=== PATIENT | female | born 1950 | race Caucasian/White ===

== ENCOUNTER 2018-07-29 22:06 | Inpatient (IN) ==
[2018-07-29] MEDS ORDERED: GuaiFENesin Liq 200 MG/10 ML UDC PO PRN (23:25)
[2018-07-29] MEDS ORDERED: Benzonatate 100 MG CAPSULE PO PRN (23:25)
[2018-07-29] MEDS ORDERED: Lactulose Oral Soln 20 GM/30 ML UDC PO PRN (23:25)
[2018-07-29] MEDS ORDERED: Ondansetron ODT 4 MG TAB.RAPDIS PO PRN (23:25)
[2018-07-30] MEDS: Furosemide 40 MG TABLET PO SCH (08:12)
[2018-07-30] MEDS: Diltiazem CD (24hr) 120 MG CAPSULE PO SCH (08:12)
[2018-07-30] MEDS: ALPRAZolam 0.25 MG TABLET PO PRN ×2 (08:12→20:54)
[2018-07-30] MEDS: predniSONE 10 MG TABLET PO SCH (08:12)
[2018-07-30] MEDS: Apixaban 5 MG TABLET PO SCH ×2 (08:12→20:54)
[2018-07-30] MEDS: Budesonide/Formoterol 160/4.5 1 PUFF INH IH SCH ×2 (09:13→22:27)
--- NOTE | 2018-07-30 15:40 | Internal Med History&Physical ---
Date of Encounter: 07/30/18 Time of Encounter: 15:10 Assessment and Plan (1) Colovesical fistula Current visit: No Status: Acute Status post repair with development of colostomy. Follow up with surgeons as directed. (2) Weakness Current visit: Yes Status: Acute PT and OT evaluations have been ordered (3) HTN (hypertension) Current visit: No Status: Chronic Continue Cardizem, Lasix, and Cozaar Qualifiers: Hypertension type: essential hypertension Qualified Code(s): I10 - Essential (primary) hypertension (4) COPD (chronic obstructive pulmonary disease) Current visit: No Status: Acute Continue Symbicort and prn Proventil nebs Qualifiers: COPD type: emphysema Emphysema type: unspecified Qualified Code(s): J43.9 - Emphysema, unspecified (5) Atrial fibrillation Current visit: No Status: Chronic Continue Cardizem and Eliquis Qualifiers: Atrial fibrillation type: persistent Qualified Code(s): I48.1 - Persistent atrial fibrillation (6) Anxiety Current visit: No Status: Chronic Continue Xanax (7) Anemia Current visit: Yes Status: Acute Postoperative. Check anemia testing in a.m. Qualifiers: Anemia type: unspecified type Qualified Code(s): D64.9 - Anemia, unspecified Internal Medicine - H&P: HPI Chief complaint: Colovesical fistula repair, acute and chronic respiratory failure Admitted From: Hospital to Hospital Transfer Plans for Post Hospital Care: Home History of present illness: Ms. Morrison is a 68 year old female who was hospitalized at [facility] July 04- July 29 after presenting at [facility] with sepsis, acute diverticulitis with possible small bowel obstruction, and colovesicular fistula. She had surgical repair of the fistula and creation of a diverting colostomy. She underwent IR CT-guided drainage for fluid collection/abscess postoperatively. She had mucus plugging and underwent bronchoscopy with BAL. She developed hydronephrosis and required left ureteral stent with residual indwelling Farias. She had new onset AF with RVR and was placed on Eliquis. She was discharged to [facility] swing bed for ongoing care needs. Past Med Surg Social Fam HX - Past Medical History Medical history: CHF, COPD, hypertension Additional medical history: diverticulitis Psychiatric history: anxiety, depression - Past Surgical History Surgical History: DAYANARA/BSO Additional surgical history: D & C, bilt knee surgery, bladder surgery - Social History Smoking Status: Former smoker Smokeless Tobacco Status: No Alcohol use: none Drug use: none - Family History Mother Hx Family Cardiac Disorders: Yes Internal Medicine - H&P: Meds Albuterol Neb [Proventil Neb] 2.5 mg IH Q4H PRN 08/07/16 [History] Albuterol Sulfate [Albuterol Inhaler] 2 puff IH Q4H PRN 08/07/16 [History] Budesonide/Formoterol 160/4.5 [Symbicort 160/4.5] 2 puff IH BIDR 08/07/16 [History] Sertraline [Zoloft] 100 mg PO DAILY 08/07/16 [History] Ondansetron HCl 4 mg PO QID PRN 06/25/18 [History] ALPRAZolam [Xanax 0.5 MG Tablet] 0.5 mg PO TID PRN 07/04/18 [History] Lactulose 30 ml PO BID PRN 07/05/18 [History] ALPRAZolam [Xanax 0.25 MG Tablet] 0.25 mg PO TID PRN 5 Days #20 tablet 07/29/18 [Rx] Apixaban [Eliquis] 5 mg PO BID tablet 07/29/18 [Rx] Benzonatate [Tessalon] 100 mg PO TID PRN capsule 07/29/18 [Rx] Diltiazem CD (24hr) [Cardizem CD] 120 mg PO DAILY cap.er.24h 07/29/18 [Rx] Furosemide [Lasix] 40 mg PO DAILY tablet 07/29/18 [Rx] GuaiFENesin Liq [Robitussin Liq] 200 mg PO Q6HR PRN udc 07/29/18 [Rx] Losartan [Cozaar] 25 mg PO DAILY #30 tablet 07/29/18 [Rx] Oxybutynin [Ditropan] 5 mg PO TID tablet 07/29/18 [Rx] predniSONE [PredniSONE] 10 mg PO DAILY #3 tablet 07/29/18 [Rx] Allergy/AdvReac Type Severity Reaction Status Date / Time morphine Allergy Vomiting Verified 07/04/18 09:30 Sulfa (Sulfonamide Allergy Hives Verified 07/04/18 09:30 Antibiotics) All Systems PM: A 10-system review of systems was performed and is negative for pertinent findings except as documented above in the HPI. Review of systems: Gen.: She states her weight has been stable for several months Cardiovascular: She has history of hypertension. She has new onset atrial fibrillation as per above. Echocardiogram 07/05/2018 showed LVEF of 60%. There was indeterminate diastolic function assessment due to atrial fibrillation. Interventricular septum and posterior wall thickness measurements were 1.30 and 0.96 cm respectively. There was slight RVSP estimate elevation at 38 mmHg. No significant valvular dysfunction was seen. She denies PR DVT or pulmonary embolus. Respiratory: She smoked from age [age] up to one half packs per day. She does not recall PFTs but has been diagnosed with COPD. She uses oxygen at bedtime and as needed during the daytime. She has chronic respiratory failure and uses BiPAP at bedtime. GI: She denies disorders of her liver gallbladder or exocrine pancreas. She had recent colovesicular fistula repair with development of colostomy as per history of present illness. : She had stent placed in left ureter and fistula bladder repair as per history of present illness. She denies other kidney or bladder disorders. Neurologic: She denies large distribution strokes or seizures. Endocrine: She denies diabetes thyroid disease or hyperlipidemia Hematology/oncology: She was unaware she had anemia on most labs since 07/08/2018. She had leukocytosis intermittently for 3 years. WBC was normal yesterday at 7.9. She denies known internal malignancies or other blood disorders. Psychiatric: She has anxiety but denies depression or other mental health issues [place] skeletal: She has occasional aches and pains but denies DJD, gout, or other bone joint or muscle disorders. - Constitutional Vitals: Temp Pulse Resp BP Pulse Ox 98.4 F 98 18 117/59 92 07/30/18 07:07 07/30/18 10:34 07/30/18 10:34 07/30/18 10:34 07/30/18 10:34 Exam: Gen.: She is a well-developed well-nourished female sitting in a chair at bedside who appears in no acute distress. She denies pain or dyspnea. HEENT: Head is atraumatic and normocephalic. Eyes: EOMI. There is no scleral icterus. Mouth: Mucosa is moist. Neck: Supple and nontender. There is no thyromegaly or adenopathy noted. Heart: Regular without murmurs gallops or ectopics Lungs: No wheezes or crackles are heard. Abdomen: She has an ostomy bag in the left abdominal area. The abdomen is nontender to palpation. Exam is limited because she is in the seated position. Extremities: She has bilateral dependent rubor. There is 1+ edema of the dorsum of the feet lower legs bilaterally. Dorsalis pedis and posterior tibial pulses are not palpable. Neurologic: Mental status: She is talkative and a good historian. Cranial nerves: Smile is symmetric. Forehead wrinkles bilaterally. Tongue protrudes midline. EOMI. Motor: There is no pronator drift. Cerebellar: Finger to nose is intact bilaterally. Skin: Warm and dry
[2018-07-31 06:30] LABS: Basophils % 0.3 %; Eosinophils # 0.1 K/mcL (0.0-0.6); Hematocrit 29.4 % (35.3-44.9); Hemoglobin 9.1 g/dL (11.5-15.4); Immature Granulocytes % 0.4 % (0-4); Lymphocytes # 1.8 K/mcL (0.6-4.6); Mean Platelet Volume 9.3 fL (9.4-12.4); Monocytes # 0.5 K/mcL (0.0-1.3); Monocytes % 6.5 %; Neutrophils # 4.6 K/mcL (1.6-8.9); Platelet Count 227 K/mcL (140-400); Red Blood Count 3.03 M/mcL (3.82-4.97); Red Cell Distribution Width 15.4 % (11.5-14.5); Segmented Neutrophils % 65.8 %
[2018-07-31] MEDS: Diltiazem CD (24hr) 120 MG CAPSULE PO SCH (08:37)
[2018-07-31] MEDS: predniSONE 10 MG TABLET PO SCH (08:37)
[2018-07-31] MEDS: Apixaban 5 MG TABLET PO SCH ×2 (08:37→20:01)
[2018-07-31] MEDS: Furosemide 40 MG TABLET PO SCH (08:37)
[2018-07-31] MEDS: ALPRAZolam 0.25 MG TABLET PO PRN ×2 (08:42→22:05)
[2018-07-31 10:31] LABS: % Iron Saturation 13 % (15-50); Iron 30 mcg/dL (50-170); Transferrin 168 mg/dL (203-362)
[2018-07-31 10:50] LABS: Ferritin 340 ng/mL (10-120)
[2018-07-31 10:54] LABS: Folate 3.5 ng/mL (3.0-16.0)
[2018-07-31] MEDS: Albuterol 2.5 MG/3 ML NEBULIZER IH PRN ×2 (11:00→22:11)
[2018-07-31] MEDS: Budesonide/Formoterol 160/4.5 1 PUFF INH IH SCH ×2 (11:00→22:12)
[2018-08-01] MEDS: Diltiazem CD (24hr) 120 MG CAPSULE PO SCH (10:06)
[2018-08-01] MEDS: predniSONE 10 MG TABLET PO SCH (10:06)
[2018-08-01] MEDS: Apixaban 5 MG TABLET PO SCH ×2 (10:06→20:12)
[2018-08-01] MEDS: Furosemide 40 MG TABLET PO SCH (10:06)
[2018-08-01] MEDS: ALPRAZolam 0.25 MG TABLET PO PRN ×2 (10:09→20:13)
[2018-08-01] MEDS: Budesonide/Formoterol 160/4.5 1 PUFF INH IH SCH ×2 (11:03→22:42)
[2018-08-01] MEDS: Albuterol 2.5 MG/3 ML NEBULIZER IH PRN ×2 (11:03→22:44)
--- NOTE | 2018-08-01 12:51 | Internal Med Progress Note ---
Date of Encounter: 08/01/18 Time of Encounter: 12:40 - Assessment and plan (1) Colovesical fistula Current Visit: No Status: Acute Assessment and plan: August 01. Status post repair with development of colostomy. Follow up with surgeons as directed. (2) Weakness Current Visit: Yes Status: Acute Assessment and plan: August 01. Continue PT and OT intervention. (3) HTN (hypertension) Current Visit: No Status: Chronic Assessment and plan: August 01. Continue Cardizem, Lasix, and Cozaar. Blood pressure is borderline low. Will check orthostatic pressures in a.m. Qualifiers: Hypertension type: essential hypertension Qualified Code(s): I10 - Essential (primary) hypertension (4) COPD (chronic obstructive pulmonary disease) Current Visit: No Status: Acute Assessment and plan: August 01. Continue Symbicort and prn Proventil nebs Qualifiers: COPD type: emphysema Emphysema type: unspecified Qualified Code(s): J43.9 - Emphysema, unspecified (5) Atrial fibrillation Current Visit: No Status: Chronic Assessment and plan: August 01. Continue Cardizem and Eliquis. Qualifiers: Atrial fibrillation type: persistent Qualified Code(s): I48.1 - Persistent atrial fibrillation (6) Anxiety Current Visit: No Status: Chronic Assessment and plan: August 01. Continue prn Xanax (7) Anemia Current Visit: Yes Status: Acute Assessment and plan: August 01. Hemoglobin stable at 9.1. Anemia testing showed iron 30, transferrin saturation 13%, transferrin 168, ferritin 340, B12 230, and folate 3.5. She will receive a B12 injection and start oral B12 supplement. Ferrous sulfate with ascorbic acid will also be started. Qualifiers: Anemia type: unspecified type Qualified Code(s): D64.9 - Anemia, unspecif ied - Subjective Interval history: August 01. She has no new complaints and feels well. She reports she has had some mucoid drainage from her rectum despite a colostomy being present. - Constitutional Vitals: Temp Pulse Resp BP Pulse Ox 98.1 F 95 16 112/60 90 08/01/18 06:42 08/01/18 06:42 08/01/18 06:42 08/01/18 06:42 08/01/18 06:42 Exam: She is sitting in a chair at bedside resting comfortably. She is wearing oxygen by nasal cannula. Her affect is bright and cheerful. I reviewed her medications and lab results. Internal Medicine: Result - Labs CBC & Chem 7: 07/31/18 05:52 Consult Discharge Plan - Plan Referrals: Yaa Rogers, STOCK WORKER [Primary Care Provider] - 1 week
[2018-08-01] MEDS ORDERED: Cyanocobalamin (B-12) 1,000 MCG/ML VIAL IM ONE (12:55)
[2018-08-02] MEDS: Ascorbic Acid 500 MG TABLET PO SCH (05:47)
[2018-08-02] MEDS: Budesonide/Formoterol 160/4.5 1 PUFF INH IH SCH ×2 (09:43→22:35)
[2018-08-02] MEDS: Diltiazem CD (24hr) 120 MG CAPSULE PO SCH (10:20)
[2018-08-02] MEDS: Apixaban 5 MG TABLET PO SCH ×2 (10:20→20:29)
[2018-08-02] MEDS: Cyanocobalamin (B-12) 1,000 MCG TABLET PO SCH (10:20)
[2018-08-02] MEDS: ALPRAZolam 0.25 MG TABLET PO PRN ×2 (10:21→20:29)
[2018-08-02] MEDS: Furosemide 40 MG TABLET PO SCH (10:21)
[2018-08-02] MEDS: Acetaminophen 325 MG TABLET PO PRN (20:29)
[2018-08-03 06:17] LABS: Basophils % 0.3 %; Eosinophils # 0.2 K/mcL (0.0-0.6); Eosinophils % 2.7 %; Hematocrit 29.8 % (35.3-44.9); Hemoglobin 9.2 g/dL (11.5-15.4); Immature Granulocytes % 0.3 % (0-4); Lymphocytes # 1.8 K/mcL (0.6-4.6); Lymphocytes % 28.9 %; Mean Corpuscular HGB Conc 30.9 g/dL (31.6-35.5); Mean Corpuscular Hemoglobin 29.6 pg (28.0-33.3); Mean Corpuscular Volume 95.8 fL (83.0-100.0); Mean Platelet Volume 9.4 fL (9.4-12.4); Monocytes # 0.4 K/mcL (0.0-1.3); Monocytes % 6.3 %; Neutrophils # 3.9 K/mcL (1.6-8.9); Platelet Count 187 K/mcL (140-400); Red Blood Count 3.11 M/mcL (3.82-4.97); Red Cell Distribution Width 15.6 % (11.5-14.5); Segmented Neutrophils % 61.5 %
[2018-08-03] MEDS: Ascorbic Acid 500 MG TABLET PO SCH (06:21)
[2018-08-03 06:35] LABS: BUN/Creatinine Ratio 26 (6-26); Blood Urea Nitrogen 12 mg/dL (8-23); Calcium 8.2 mg/dL (8.6-10.3); Carbon Dioxide 33 mEq/L (23-29); Chloride 95 mEq/L (98-107); Glucose 98 mg/dL (70-105); Osmolality,Calculated 280 (280-300); Potassium 3.4 mEq/L (3.5-5.1); Sodium 135 mEq/L (136-145); eGFR For Non-African Americans > 60 (> 60)
[2018-08-03] MEDS: Furosemide 40 MG TABLET PO SCH (09:16)
[2018-08-03] MEDS: Diltiazem CD (24hr) 120 MG CAPSULE PO SCH (09:16)
[2018-08-03] MEDS: Apixaban 5 MG TABLET PO SCH ×2 (09:16→19:45)
[2018-08-03] MEDS: Cyanocobalamin (B-12) 1,000 MCG TABLET PO SCH (09:16)
[2018-08-03] MEDS: ALPRAZolam 0.25 MG TABLET PO PRN ×2 (09:21→19:48)
[2018-08-03] MEDS: Budesonide/Formoterol 160/4.5 1 PUFF INH IH SCH ×2 (09:23→21:16)
--- NOTE | 2018-08-03 19:02 | Internal Med Progress Note ---
Date of Encounter: 08/03/18 Time of Encounter: 18:55 - Assessment and plan (1) Colovesical fistula Current Visit: No Status: Acute Assessment and plan: August 01. Status post repair with development of colostomy. Follow up with surgeons as directed. August 03. Follow-up with surgeons 08/09/2018 as scheduled. (2) Weakness Current Visit: Yes Status: Acute Assessment and plan: August 01. Continue PT and OT intervention. (3) HTN (hypertension) Current Visit: No Status: Chronic Assessment and plan: August 01. Continue Cardizem, Lasix, and Cozaar. Blood pressure is borderline low. Will check orthostatic pressures in a.m. August 03. Cozaar was discontinued and blood pressure has improved. Continue Lasix and Cardizem. Qualifiers: Hypertension type: essential hypertension Qualified Code(s): I10 - Essential (primary) hypertension (4) COPD (chronic obstructive pulmonary disease) Current Visit: No Status: Acute Assessment and plan: August 01. Continue Symbicort and prn Proventil nebs Qualifiers: COPD type: emphysema Emphysema type: unspecified Qualified Code(s): J43.9 - Emphysema, unspecified (5) Atrial fibrillation Current Visit: No Status: Chronic Assessment and plan: August 01. Continue Cardizem and Eliquis. Qualifiers: Atrial fibrillation type: persistent Qualified Code(s): I48.1 - Persistent atrial fibrillation (6) Anxiety Current Visit: No Status: Chronic Assessment and plan: August 01. Continue prn Xanax (7) Anemia Current Visit: Yes Status: Acute Assessment and plan: August 01. Hemoglobin stable at 9.1. Anemia testing showed iron 30, transferrin saturation 13%, transferrin 168, ferritin 340, B12 230, and folate 3.5. She will receive a B12 injection and start oral B12 supplement. Ferrous sulfate with ascorbic acid will also be started. August 03. Hemoglobin minimally improved at 9.2. Continue B12, ferrous sulfate, and ascorbic acid. Qualifiers: Anemia type: unspecified type Qualified Code(s): D64.9 - Anemia, unspecified (8) Hypokalemia Current Visit: Yes Status: Acute Assessment and plan: August 03. Potassium level slightly low at 3.4. BN peptide normal at 40. Will reduce Lasix to 20 mg daily and give potassium supplement. Continue to monitor. - Subjective Interval history: August 01. She has no new complaints and feels well. She reports she has had some mucoid drainage from her rectum despite a colostomy being present. August 03. She has no new complaints. A photograph of her colostomy site was sent to the surgeon's office yesterday. No significant changes in Rx were ordered - Constitutional Vitals: Temp Pulse Resp BP Pulse Ox 98.2 F 95 16 112/64 95 08/03/18 18:32 08/03/18 18:32 08/03/18 18:32 08/03/18 18:32 08/03/18 18:32 Exam: She is sitting comfortably in a chair at bedside and appears in no acute distress. Her affect is overall cheerful. I reviewed her medications and lab results. Internal Medicine: Result - Labs CBC & Chem 7: 08/03/18 05:20 08/03/18 05:20 Labs: Short CBC 08/03/18 Range/Units 05:20 WBC 6.4 (4.3-11.1) K/mcL Hgb 9.2 L (11.5-15.4) g/dL Hct 29.8 L (35.3-44.9) % Plt Count 187 (140-400) K/mcL Neutrophils # 3.9 (1.6-8.9) K/mcL BMP 08/03/18 05:20 Sodium 135 L Potassium 3.4 L Chloride 95 L Carbon Dioxide 33 H BUN 12 Creatinine 0.46 L Glucose 98 Calcium 8.2 L Consult Discharge Plan - Plan Referrals: Yaa Rogers, AUTOMATED MANUFACTURING INSTRUCTOR [Primary Care Provider] - 1 week
[2018-08-03] MEDS: Acetaminophen 325 MG TABLET PO PRN (21:38)
[2018-08-04] MEDS: Ascorbic Acid 500 MG TABLET PO SCH (05:53)
[2018-08-04] MEDS: Apixaban 5 MG TABLET PO SCH ×2 (09:05→21:35)
[2018-08-04] MEDS: Furosemide 20 MG TABLET PO SCH (09:05)
[2018-08-04] MEDS: Cyanocobalamin (B-12) 1,000 MCG TABLET PO SCH (09:05)
[2018-08-04] MEDS: Diltiazem CD (24hr) 120 MG CAPSULE PO SCH (09:05)
[2018-08-04] MEDS: Budesonide/Formoterol 160/4.5 1 PUFF INH IH SCH ×2 (09:10→21:45)
[2018-08-04] MEDS: ALPRAZolam 0.25 MG TABLET PO PRN ×2 (14:07→21:35)
[2018-08-04] MEDS: Acetaminophen 325 MG TABLET PO PRN ×2 (14:07→21:35)
[2018-08-05] MEDS: Ascorbic Acid 500 MG TABLET PO SCH (05:53)
[2018-08-05] MEDS: Cyanocobalamin (B-12) 1,000 MCG TABLET PO SCH (08:55)
[2018-08-05] MEDS: Furosemide 20 MG TABLET PO SCH (08:55)
[2018-08-05] MEDS: Apixaban 5 MG TABLET PO SCH ×2 (08:55→21:09)
[2018-08-05] MEDS: Diltiazem CD (24hr) 120 MG CAPSULE PO SCH (08:56)
[2018-08-05] MEDS: Albuterol 2.5 MG/3 ML NEBULIZER IH PRN (09:57)
[2018-08-05] MEDS: Budesonide/Formoterol 160/4.5 1 PUFF INH IH SCH ×2 (09:57→22:09)
[2018-08-05] MEDS: Acetaminophen 325 MG TABLET PO PRN (13:41)
[2018-08-05] MEDS: ALPRAZolam 0.25 MG TABLET PO PRN (21:11)
[2018-08-06 05:56] LABS: Basophils % 0.3 %; Eosinophils # 0.2 K/mcL (0.0-0.6); Eosinophils % 3.1 %; Hematocrit 29.6 % (35.3-44.9); Hemoglobin 9.5 g/dL (11.5-15.4); Immature Granulocytes % 0.7 % (0-4); Lymphocytes # 1.9 K/mcL (0.6-4.6); Lymphocytes % 30.6 %; Mean Corpuscular HGB Conc 32.1 g/dL (31.6-35.5); Mean Corpuscular Hemoglobin 30.4 pg (28.0-33.3); Mean Corpuscular Volume 94.9 fL (83.0-100.0); Monocytes # 0.4 K/mcL (0.0-1.3); Monocytes % 6.7 %; Neutrophils # 3.6 K/mcL (1.6-8.9); Platelet Count 211 K/mcL (140-400); Red Blood Count 3.12 M/mcL (3.82-4.97); Red Cell Distribution Width 15.5 % (11.5-14.5); Segmented Neutrophils % 58.6 %
[2018-08-06 06:20] LABS: BUN/Creatinine Ratio 20 (6-26); Blood Urea Nitrogen 9 mg/dL (8-23); Calcium 8.6 mg/dL (8.6-10.3); Carbon Dioxide 31 mEq/L (23-29); Chloride 97 mEq/L (98-107); Glucose 99 mg/dL (70-105); Magnesium 1.4 mg/dL (1.6-2.6); Osmolality,Calculated 277 (280-300); Potassium 4.1 mEq/L (3.5-5.1); Sodium 134 mEq/L (136-145); eGFR For Non-African Americans > 60 (> 60)
[2018-08-06] MEDS: Ascorbic Acid 500 MG TABLET PO SCH (06:34)
[2018-08-06] MEDS: Apixaban 5 MG TABLET PO SCH ×2 (08:40→20:51)
[2018-08-06] MEDS: Cyanocobalamin (B-12) 1,000 MCG TABLET PO SCH (08:40)
[2018-08-06] MEDS: Diltiazem CD (24hr) 120 MG CAPSULE PO SCH (08:40)
[2018-08-06] MEDS: Furosemide 20 MG TABLET PO SCH (08:41)
[2018-08-06] MEDS: ALPRAZolam 0.25 MG TABLET PO PRN (08:44)
[2018-08-06] MEDS: Albuterol 2.5 MG/3 ML NEBULIZER IH PRN (10:15)
[2018-08-06] MEDS: Budesonide/Formoterol 160/4.5 1 PUFF INH IH SCH ×2 (10:16→22:25)
--- NOTE | 2018-08-06 16:07 | Internal Med Progress Note ---
Date of Encounter: 08/06/18 Time of Encounter: 16:00 - Assessment and plan (1) Colovesical fistula Current Visit: No Status: Acute Assessment and plan: August 01. Status post repair with development of colostomy. Follow up with surgeons as directed. August 03. Follow-up with surgeons 08/09/2018 as scheduled. (2) Weakness Current Visit: Yes Status: Acute Assessment and plan: August 01. Continue PT and OT intervention. (3) HTN (hypertension) Current Visit: No Status: Chronic Assessment and plan: August 01. Continue Cardizem, Lasix, and Cozaar. Blood pressure is borderline low. Will check orthostatic pressures in a.m. August 03. Cozaar was discontinued and blood pressure has improved. Continue Lasix and Cardizem. August 06. Blood pressure overall well controlled with occasional borderline hypotension. Continue Cardizem and lower dose Lasix. Qualifiers: Hypertension type: essential hypertension Qualified Code(s): I10 - Essential (primary) hypertension (4) COPD (chronic obstructive pulmonary disease) Current Visit: No Status: Acute Assessment and plan: August 01. Continue Symbicort and prn Proventil nebs Qualifiers: COPD type: emphysema Emphysema type: unspecified Qualified Code(s): J43.9 - Emphysema, unspecified (5) Atrial fibrillation Current Visit: No Status: Chronic Assessment and plan: August 01. Continue Cardizem and Eliquis. Qualifiers: Atrial fibrillation type: persistent Qualified Code(s): I48.1 - Persistent atrial fibrillation (6) Anxiety Current Visit: No Status: Chronic Assessment and plan: August 01. Continue prn Xanax (7) Anemia Current Visit: Yes Status: Acute Assessment and plan: August 01. Hemoglobin stable at 9.1. Anemia testing showed iron 30, transferrin saturation 13%, transferrin 168, ferritin 340, B12 230, and folate 3.5. She will receive a B12 injection and start oral B12 supplement. Ferrous sulfate with ascorbic acid will also be started. August 03. Hemoglobin minimally improved at 9.2. Continue B12, ferrous sulfate, and ascorbic acid. August 06. Hemoglobin improved to 9.5. Continue present Rx. Qualifiers: Anemia type: unspecified type Qualified Code(s): D64.9 - Anemia, unspecified (8) Hypokalemia Current Visit: Yes Status: Acute Assessment and plan: August 03. Potassium level slightly low at 3.4. BN peptide normal at 40. Will reduce Lasix to 20 mg daily and give potassium supplement. Continue to monitor. August 06. Potassium normal at 4.1. Continue to monitor. (9) Hypomagnesemia Current Visit: Yes Status: Acute Assessment and plan: August 06. Magnesium level low at 1.4. Will order magnesium oxide - Subjective Interval history: August 01. She has no new complaints and feels well. She reports she has had some mucoid drainage from her rectum despite a colostomy being present. August 03. She has no new complaints. A photograph of her colostomy site was sent to the surgeon's office yesterday. No significant changes in Rx were ordered August 06. She has no new complaints and feels stronger. - Constitutional Vitals: Temp Pulse Resp BP Pulse Ox 98.2 F 87 18 101/51 92 08/06/18 07:41 08/06/18 07:41 08/06/18 10:16 08/06/18 07:41 08/06/18 10:16 Exam: She is sitting in a chair at bedside resting currently. Her affect is bright and cheerful. Farias catheter is draining urine with sediment. There appears to be some visible blood in the tubing. I reviewed her medications and lab results. Internal Medicine: Result - Labs CBC & Chem 7: 08/06/18 05:49 08/06/18 05:49 Labs: Short CBC 08/06/18 Range/Units 05:49 WBC 6.1 (4.3-11.1) K/mcL Hgb 9.5 L (11.5-15.4) g/dL Hct 29.6 L (35.3-44.9) % Plt Count 211 (140-400) K/mcL Neutrophils # 3.6 (1.6-8.9) K/mcL BMP 08/06/18 05:49 Sodium 134 L Potassium 4.1 Chloride 97 L Carbon Dioxide 31 H BUN 9 Creatinine 0.44 L Glucose 99 Calcium 8.6 Consult Discharge Plan - Plan Referrals: Yaa Rogers, BRICKLAYER SEWER [Primary Care Provider] - 1 week
[2018-08-06] MEDS: Magnesium Oxide 400 MG TABLET PO SCH (20:52)
[2018-08-07] MEDS: Ascorbic Acid 500 MG TABLET PO SCH (06:43)
[2018-08-07] MEDS: Cyanocobalamin (B-12) 1,000 MCG TABLET PO SCH (08:49)
[2018-08-07] MEDS: Diltiazem CD (24hr) 120 MG CAPSULE PO SCH (08:49)
[2018-08-07] MEDS: Apixaban 5 MG TABLET PO SCH ×2 (08:49→20:27)
[2018-08-07] MEDS: Magnesium Oxide 400 MG TABLET PO SCH ×2 (08:50→20:27)
[2018-08-07] MEDS: ALPRAZolam 0.25 MG TABLET PO PRN ×2 (08:50→20:27)
[2018-08-07] MEDS: Furosemide 20 MG TABLET PO SCH (08:50)
[2018-08-07] MEDS: Budesonide/Formoterol 160/4.5 1 PUFF INH IH SCH ×2 (09:10→21:37)
[2018-08-07] MEDS: Albuterol 2.5 MG/3 ML NEBULIZER IH PRN ×2 (09:14→21:42)
[2018-08-08] MEDS: Ascorbic Acid 500 MG TABLET PO SCH (06:03)
[2018-08-08] MEDS: Budesonide/Formoterol 160/4.5 1 PUFF INH IH SCH ×2 (08:56→21:18)
[2018-08-08] MEDS: Albuterol 2.5 MG/3 ML NEBULIZER IH PRN (08:57)
[2018-08-08] MEDS: Cyanocobalamin (B-12) 1,000 MCG TABLET PO SCH (09:04)
[2018-08-08] MEDS: Apixaban 5 MG TABLET PO SCH ×2 (09:04→20:30)
[2018-08-08] MEDS: Furosemide 20 MG TABLET PO SCH (09:05)
[2018-08-08] MEDS: Magnesium Oxide 400 MG TABLET PO SCH ×2 (09:05→20:30)
[2018-08-08] MEDS: Diltiazem CD (24hr) 120 MG CAPSULE PO SCH (09:05)
[2018-08-08] MEDS: Acetaminophen 325 MG TABLET PO PRN (14:02)
[2018-08-08] MEDS: ALPRAZolam 0.25 MG TABLET PO PRN ×2 (14:03→20:30)
[2018-08-09 05:43] LABS: Basophils % 0.1 %; Eosinophils # 0.3 K/mcL (0.0-0.6); Eosinophils % 3.2 %; Hematocrit 30.5 % (35.3-44.9); Hemoglobin 9.6 g/dL (11.5-15.4); Lymphocytes # 1.9 K/mcL (0.6-4.6); Lymphocytes % 23.1 %; Mean Corpuscular HGB Conc 31.5 g/dL (31.6-35.5); Mean Corpuscular Hemoglobin 29.7 pg (28.0-33.3); Mean Corpuscular Volume 94.4 fL (83.0-100.0); Mean Platelet Volume 8.9 fL (9.4-12.4); Monocytes # 0.6 K/mcL (0.0-1.3); Neutrophils # 5.3 K/mcL (1.6-8.9); Platelet Count 341 K/mcL (140-400); Red Blood Count 3.23 M/mcL (3.82-4.97); Red Cell Distribution Width 15.6 % (11.5-14.5); Segmented Neutrophils % 65.6 %
[2018-08-09] MEDS: Ascorbic Acid 500 MG TABLET PO SCH (06:00)
[2018-08-09 06:05] LABS: BUN/Creatinine Ratio 16 (6-26); Blood Urea Nitrogen 7 mg/dL (8-23); Calcium 8.3 mg/dL (8.6-10.3); Carbon Dioxide 30 mEq/L (23-29); Chloride 95 mEq/L (98-107); Glucose 106 mg/dL (70-105); Magnesium 1.9 mg/dL (1.6-2.6); Osmolality,Calculated 272 (280-300); Potassium 4.2 mEq/L (3.5-5.1); Sodium 132 mEq/L (136-145); eGFR For Non-African Americans > 60 (> 60)
[2018-08-09] MEDS: Diltiazem CD (24hr) 120 MG CAPSULE PO SCH (08:10)
[2018-08-09] MEDS: Apixaban 5 MG TABLET PO SCH ×2 (08:11→20:28)
[2018-08-09] MEDS: Furosemide 20 MG TABLET PO SCH (08:11)
[2018-08-09] MEDS: Cyanocobalamin (B-12) 1,000 MCG TABLET PO SCH (08:11)
[2018-08-09] MEDS: Magnesium Oxide 400 MG TABLET PO SCH ×2 (08:11→20:28)
[2018-08-09] MEDS: ALPRAZolam 0.25 MG TABLET PO PRN ×2 (08:16→20:28)
[2018-08-09] MEDS: Budesonide/Formoterol 160/4.5 1 PUFF INH IH SCH ×2 (10:09→21:25)
--- NOTE | 2018-08-09 12:50 | Internal Med Progress Note ---
Date of Encounter: 08/09/18 Time of Encounter: 12:42 - Assessment and plan (1) Colovesical fistula Current Visit: No Status: Acute Assessment and plan: August 01. Status post repair with development of colostomy. Follow up with surgeons as directed. August 03. Follow-up with surgeons 08/09/2018 as scheduled. (2) Weakness Current Visit: Yes Status: Acute Assessment and plan: August 01. Continue PT and OT intervention. (3) HTN (hypertension) Current Visit: No Status: Chronic Assessment and plan: August 01. Continue Cardizem, Lasix, and Cozaar. Blood pressure is borderline low. Will check orthostatic pressures in a.m. August 03. Cozaar was discontinued and blood pressure has improved. Continue Lasix and Cardizem. August 06. Blood pressure overall well controlled with occasional borderline hypotension. Continue Cardizem and lower dose Lasix. Qualifiers: Hypertension type: essential hypertension Qualified Code(s): I10 - Essential (primary) hypertension (4) COPD (chronic obstructive pulmonary disease) Current Visit: No Status: Acute Assessment and plan: August 01. Continue Symbicort and prn Proventil nebs Qualifiers: COPD type: emphysema Emphysema type: unspecified Qualified Code(s): J43.9 - Emphysema, unspecified (5) Atrial fibrillation Current Visit: No Status: Chronic Assessment and plan: August 01. Continue Cardizem and Eliquis. Qualifiers: Atrial fibrillation type: persistent Qualified Code(s): I48.1 - Persistent atrial fibrillation (6) Anxiety Current Visit: No Status: Chronic Assessment and plan: August 01. Continue prn Xanax (7) Anemia Current Visit: Yes Status: Acute Assessment and plan: August 01. Hemoglobin stable at 9.1. Anemia testing showed iron 30, transferrin saturation 13%, transferrin 168, ferritin 340, B12 230, and folate 3.5. She will receive a B12 injection and start oral B12 supplement. Ferrous sulfate with ascorbic acid will also be started. August 03. Hemoglobin minimally improved at 9.2. Continue B12, ferrous sulfate, and ascorbic acid. August 06. Hemoglobin improved to 9.5. Continue present Rx. August 09. Hemoglobin slightly improved to 9.6. Continue present Rx. Qualifiers: Anemia type: unspecified type Qualified Code(s): D64.9 - Anemia, unspecified (8) Hypokalemia Current Visit: Yes Status: Acute Assessment and plan: August 03. Potassium level slightly low at 3.4. BN peptide normal at 40. Will reduce Lasix to 20 mg daily and give potassium supplement. Continue to monitor. August 06. Potassium normal at 4.1. Continue to monitor. August 09. Potassium remains normal at 4.2. Continue present Rx. (9) Hypomagnesemia Current Visit: Yes Status: Acute Assessment and plan: August 06. Magnesium level low at 1.4. Will order magnesium oxide August 09. Magnesium level normal at 1.9. Continue magnesium oxide. - Subjective Interval history: August 01. She has no new complaints and feels well. She reports she has had some mucoid drainage from her rectum despite a colostomy being present. August 03. She has no new complaints. A photograph of her colostomy site was sent to the surgeon's office yesterday. No significant changes in Rx were ordered August 06. She has no new complaints and feels stronger. August 09. She has no new complaints. She was seen by physicians at [facility] earlier today. She stated consideration for reversal of colostomy will be discussed further at her next appointment in mid October. - Constitutional Vitals: Temp Pulse Resp BP Pulse Ox 98.2 F 94 24 101/62 91 08/09/18 12:38 08/09/18 12:38 08/09/18 12:38 08/09/18 12:38 08/09/18 12:45 Exam: She is sitting in a chair at bedside resting comfortably. Her affect is cheerful. She is wearing oxygen by nasal cannula. I reviewed her medications and lab results. Internal Medicine: Result - Labs CBC & Chem 7: 08/09/18 05:10 08/09/18 05:10 Labs: Short CBC 08/09/18 Range/Units 05:10 WBC 8.0 (4.3-11.1) K/mcL Hgb 9.6 L (11.5-15.4) g/dL Hct 30.5 L (35.3-44.9) % Plt Count 341 D (140-400) K/mcL Neutrophils # 5.3 (1.6-8.9) K/mcL BMP 08/09/18 05:10 Sodium 132 L Potassium 4.2 Chloride 95 L Carbon Dioxide 30 H BUN 7 L Creatinine 0.43 L Glucose 106 H Calcium 8.3 L Consult Discharge Plan - Plan Referrals: Yaa Rogers, STATE'S ATTORNEY [Primary Care Provider] - 1 week
[2018-08-09] MEDS: Albuterol 2.5 MG/3 ML NEBULIZER IH PRN (21:23)
[2018-08-10] MEDS: Ascorbic Acid 500 MG TABLET PO SCH (05:46)
[2018-08-10] MEDS: Cyanocobalamin (B-12) 1,000 MCG TABLET PO SCH (08:30)
[2018-08-10] MEDS: Diltiazem CD (24hr) 120 MG CAPSULE PO SCH (08:30)
[2018-08-10] MEDS: Furosemide 20 MG TABLET PO SCH (08:30)
[2018-08-10] MEDS: Apixaban 5 MG TABLET PO SCH ×2 (08:30→20:05)
[2018-08-10] MEDS: Magnesium Oxide 400 MG TABLET PO SCH ×2 (08:31→20:05)
[2018-08-10] MEDS: Albuterol 2.5 MG/3 ML NEBULIZER IH PRN (10:30)
[2018-08-10] MEDS: Budesonide/Formoterol 160/4.5 1 PUFF INH IH SCH ×2 (10:30→21:57)
--- NOTE | 2018-08-10 11:31 | Internal Med Progress Note ---
Date of Encounter: 08/10/18 Time of Encounter: 11:20 - Assessment and plan (1) Colovesical fistula Current Visit: No Status: Acute Assessment and plan: August 01. Status post repair with development of colostomy. Follow up with surgeons as directed. August 03. Follow-up with surgeons 08/09/2018 as scheduled. (2) Weakness Current Visit: Yes Status: Acute Assessment and plan: August 01. Continue PT and OT intervention. (3) HTN (hypertension) Current Visit: No Status: Chronic Assessment and plan: August 01. Continue Cardizem, Lasix, and Cozaar. Blood pressure is borderline low. Will check orthostatic pressures in a.m. August 03. Cozaar was discontinued and blood pressure has improved. Continue Lasix and Cardizem. August 06. Blood pressure overall well controlled with occasional borderline hypotension. Continue Cardizem and lower dose Lasix. Qualifiers: Hypertension type: essential hypertension Qualified Code(s): I10 - Essential (primary) hypertension (4) COPD (chronic obstructive pulmonary disease) Current Visit: No Status: Acute Assessment and plan: August 01. Continue Symbicort and prn Proventil nebs Qualifiers: COPD type: emphysema Emphysema type: unspecified Qualified Code(s): J43.9 - Emphysema, unspecified (5) Atrial fibrillation Current Visit: No Status: Chronic Assessment and plan: August 01. Continue Cardizem and Eliquis. August 10. Blood pressure remains borderline low. Discontinue Cardizem. Continue Eliquis. Qualifiers: Atrial fibrillation type: persistent Qualified Code(s): I48.1 - Persistent atrial fibrillation (6) Anxiety Current Visit: No Status: Chronic Assessment and plan: August 01. Continue prn Xanax (7) Anemia Current Visit: Yes Status: Acute Assessment and plan: August 01. Hemoglobin stable at 9.1. Anemia testing showed iron 30, transferrin saturation 13%, transferrin 168, ferritin 340, B12 230, and folate 3.5. She will receive a B12 injection and start oral B12 supplement. Ferrous sulfate with ascorbic acid will also be started. August 03. Hemoglobin minimally improved at 9.2. Continue B12, ferrous sulfate, and ascorbic acid. August 06. Hemoglobin improved to 9.5. Continue present Rx. August 09. Hemoglobin slightly improved to 9.6. Continue present Rx. Qualifiers: Anemia type: unspecified type Qualified Code(s): D64.9 - Anemia, unspecified (8) Hypokalemia Current Visit: Yes Status: Acute Assessment and plan: August 03. Potassium level slightly low at 3.4. BN peptide normal at 40. Will reduce Lasix to 20 mg daily and give potassium supplement. Continue to monitor. August 06. Potassium normal at 4.1. Continue to monitor. August 09. Potassium remains normal at 4.2. Continue present Rx. (9) Hypomagnesemia Current Visit: Yes Status: Acute Assessment and plan: August 06. Magnesium level low at 1.4. Will order magnesium oxide August 09. Magnesium level normal at 1.9. Continue magnesium oxide. August 10. Recheck labs in a.m. (10) Edema Current Visit: Yes Status: Acute Assessment and plan: August 10. Check BN peptide in a.m. Change from Lasix to Bumex. Qualifiers: Edema type: unspecified Qualified Code(s): R60.9 - Edema, unspecified (11) Rash Current Visit: Yes Status: Acute Assessment and plan: August 10. Suspected drug allergy rash. Etiologic agent uncertain. Benadryl has been ordered. Prednisone will be added and reassessment tomorrow. - Subjective Interval history: August 01. She has no new complaints and feels well. She reports she has had some mucoid drainage from her rectum despite a colostomy being present. August 03. She has no new complaints. A photograph of her colostomy site was sent to the surgeon's office yesterday. No significant changes in Rx were ordered August 06. She has no new complaints and feels stronger. August 09. She has no new complaints. She was seen by physicians at [facility] earlier today. She stated consideration for reversal of colostomy will be discussed further at her next appointment in mid October. August 10. She reports she does not feel well today and is tired. She was found by nursing staff to have a rash on her back. She reports it was pruritic yesterday but less today. - Constitutional Vitals: Temp Pulse Resp BP Pulse Ox 97.3 F L 89 20 108/57 90 08/10/18 06:36 08/10/18 06:36 08/10/18 10:30 08/10/18 06:36 08/10/18 10:30 Exam: She is resting comfortably in a chair at bedside and appears in no acute distress. She is wearing oxygen by nasal cannula. Her affect is overall cheerful. She has diffuse erythematous rash possibly drug allergy involving large portion of her back and anterolateral torso. There appears to some involvement of her arms. Her legs show 1+ edema bilaterally through MENA hose. Internal Medicine: Result - Labs CBC & Chem 7: 08/09/18 05:10 08/09/18 05:10 Consult Discharge Plan - Plan Referrals: Yaa Rogers USER EXPERIENCE DEVELOPER [Primary Care Provider] - 1 week
[2018-08-10] MEDS: Bumetanide 1 MG TABLET PO SCH (14:30)
[2018-08-10] MEDS: predniSONE 10 MG TABLET PO SCH (17:28)
[2018-08-10] MEDS: ALPRAZolam 0.25 MG TABLET PO PRN (20:05)
[2018-08-11] MEDS: Ascorbic Acid 500 MG TABLET PO SCH (05:20)
[2018-08-11 05:36] LABS: Basophils % 0.4 %; Eosinophils # 0.3 K/mcL (0.0-0.6); Eosinophils % 3.7 %; Hematocrit 33.4 % (35.3-44.9); Hemoglobin 10.5 g/dL (11.5-15.4); Immature Granulocytes % 1.4 % (0-4); Lymphocytes % 25.5 %; Mean Corpuscular HGB Conc 31.4 g/dL (31.6-35.5); Mean Corpuscular Hemoglobin 29.7 pg (28.0-33.3); Mean Corpuscular Volume 94.4 fL (83.0-100.0); Mean Platelet Volume 8.8 fL (9.4-12.4); Monocytes # 0.5 K/mcL (0.0-1.3); Monocytes % 6.9 %; Neutrophils # 4.8 K/mcL (1.6-8.9); Platelet Count 424 K/mcL (140-400); Red Blood Count 3.54 M/mcL (3.82-4.97); Red Cell Distribution Width 15.6 % (11.5-14.5); Segmented Neutrophils % 62.1 %
[2018-08-11] MEDS: Bumetanide 1 MG TABLET PO SCH (08:09)
[2018-08-11] MEDS: Apixaban 5 MG TABLET PO SCH ×2 (08:09→20:29)
[2018-08-11] MEDS: Magnesium Oxide 400 MG TABLET PO SCH ×2 (08:10→20:29)
[2018-08-11] MEDS: Cyanocobalamin (B-12) 1,000 MCG TABLET PO SCH (08:10)
[2018-08-11] MEDS: predniSONE 10 MG TABLET PO SCH (08:10)
[2018-08-11] MEDS: Budesonide/Formoterol 160/4.5 1 PUFF INH IH SCH ×2 (09:22→22:28)
[2018-08-11] MEDS: Albuterol 2.5 MG/3 ML NEBULIZER IH PRN (09:22)
--- NOTE | 2018-08-11 10:54 | Internal Med Progress Note ---
Date of Encounter: 08/11/18 Time of Encounter: 10:20 - Assessment and plan (1) Colovesical fistula Current Visit: No Status: Acute Assessment and plan: August 01. Status post repair with development of colostomy. Follow up with surgeons as directed. August 03. Follow-up with surgeons 08/09/2018 as scheduled. (2) Weakness Current Visit: Yes Status: Acute Assessment and plan: August 01. Continue PT and OT intervention. (3) HTN (hypertension) Current Visit: No Status: Chronic Assessment and plan: August 01. Continue Cardizem, Lasix, and Cozaar. Blood pressure is borderline low. Will check orthostatic pressures in a.m. August 03. Cozaar was discontinued and blood pressure has improved. Continue Lasix and Cardizem. August 06. Blood pressure overall well controlled with occasional borderline hypotension. Continue Cardizem and lower dose Lasix. August 11. Now off Cardizem. Blood pressure will be monitored. Qualifiers: Hypertension type: essential hypertension Qualified Code(s): I10 - Essential (primary) hypertension (4) COPD (chronic obstructive pulmonary disease) Current Visit: No Status: Acute Assessment and plan: August 01. Continue Symbicort and prn Proventil nebs Qualifiers: COPD type: emphysema Emphysema type: unspecified Qualified Code(s): J43.9 - Emphysema, unspecified (5) Atrial fibrillation Current Visit: No Status: Chronic Assessment and plan: August 01. Continue Cardizem and Eliquis. August 10. Blood pressure remains borderline low. Discontinue Cardizem. Contin ue Eliquis. Qualifiers: Atrial fibrillation type: persistent Qualified Code(s): I48.1 - Persistent atrial fibrillation (6) Anxiety Current Visit: No Status: Chronic Assessment and plan: August 01. Continue prn Xanax (7) Anemia Current Visit: Yes Status: Acute Assessment and plan: August 01. Hemoglobin stable at 9.1. Anemia testing showed iron 30, transferrin saturation 13%, transferrin 168, ferritin 340, B12 230, and folate 3.5. She will receive a B12 injection and start oral B12 supplement. Ferrous sulfate with ascorbic acid will also be started. August 03. Hemoglobin minimally improved at 9.2. Continue B12, ferrous sulfate, and ascorbic acid. August 06. Hemoglobin improved to 9.5. Continue present Rx. August 09. Hemoglobin slightly improved to 9.6. Continue present Rx. August 11. Hemoglobin improved to 10.5. Continue to monitor periodically. Qualifiers: Anemia type: unspecified type Qualified Code(s): D64.9 - Anemia, unspecified (8) Hypokalemia Current Visit: Yes Status: Acute Assessment and plan: August 03. Potassium level slightly low at 3.4. BN peptide normal at 40. Will reduce Lasix to 20 mg daily and give potassium supplement. Continue to monitor. August 06. Potassium normal at 4.1. Continue to monitor. August 09. Potassium remains normal at 4.2. Continue present Rx. (9) Hypomagnesemia Current Visit: Yes Status: Acute Assessment and plan: August 06. Magnesium level low at 1.4. Will order magnesium oxide August 09. Magnesium level normal at 1.9. Continue magnesium oxide. August 10. Recheck labs in a.m. August 11. Magnesium level stable at 1.9. Continue magnesium oxide. (10) Edema Current Visit: Yes Status: Acute Assessment and plan: August 10. Check BN peptide in a.m. Change from Lasix to Bumex. August 11. BN peptide normal at 74. Encouraged her to keep her legs elevated. Qualifiers: Edema type: unspecified Qualified Code(s): R60.9 - Edema, unspecified (11) Rash Current Visit: Yes Status: Acute Assessment and plan: August 10. Suspected drug allergy rash. Etiologic agent uncertain. Benadryl has been ordered. Prednisone will be added and reassessment tomorrow. August 11. Will increase prednisone and schedule loratadine. Continue Benadryl as needed. - Subjective Interval history: August 01. She has no new complaints and feels well. She reports she has had some mucoid drainage from her rectum despite a colostomy being present. August 03. She has no new complaints. A photograph of her colostomy site was sent to the surgeon's office yesterday. No significant changes in Rx were ordered August 06. She has no new complaints and feels stronger. August 09. She has no new complaints. She was seen by physicians at [facility] earlier today. She stated consideration for reversal of colostomy will be discussed further at her next appointment in mid October. August 10. She reports she does not feel well today and is tired. She was found by nursing staff to have a rash on her back. She reports it was pruritic yesterday but less today. August 11. She has no new complaints and feels slightly better. She reports the rash is more pruritic today. - Constitutional Vitals: Temp Pulse Resp BP Pulse Ox 97.4 F L 89 18 144/73 92 08/11/18 07:59 08/11/18 07:59 08/11/18 09:23 08/11/18 07:59 08/11/18 09:23 Exam: She is sitting in a chair at bedside resting comfortably and appears in no acute distress. She is wearing oxygen by nasal cannula. Her affect is overall cheerful. There is no significant change in the rash on her back. She has 1-2+ edema of the lower legs bilaterally. I reviewed her medications and lab results. Internal Medicine: Result - Labs CBC & Chem 7: 08/11/18 05:18 08/09/18 05:10 Labs: Short CBC 08/11/18 Range/Units 05:18 WBC 7.7 (4.3-11.1) K/mcL Hgb 10.5 L (11.5-15.4) g/dL Hct 33.4 L (35.3-44.9) % Plt Count 424 H (140-400) K/mcL Neutrophils # 4.8 (1.6-8.9) K/mcL Consult Discharge Plan - Plan Referrals: Yaa Rogers, FLAT OPTICAL ELEMENT MAKER [Primary Care Provider] - 1 week
[2018-08-11] MEDS: Loratadine 10 MG TABLET PO SCH (12:28)
[2018-08-11] MEDS: predniSONE 20 MG TABLET PO SCH ×2 (12:29→17:47)
[2018-08-11] MEDS: ALPRAZolam 0.25 MG TABLET PO PRN (20:30)
[2018-08-12] MEDS: Ascorbic Acid 500 MG TABLET PO SCH (05:10)
[2018-08-12] MEDS: Cyanocobalamin (B-12) 1,000 MCG TABLET PO SCH (08:27)
[2018-08-12] MEDS: Bumetanide 1 MG TABLET PO SCH (08:27)
[2018-08-12] MEDS: predniSONE 20 MG TABLET PO SCH ×2 (08:28→17:24)
[2018-08-12] MEDS: Loratadine 10 MG TABLET PO SCH (08:28)
[2018-08-12] MEDS: Magnesium Oxide 400 MG TABLET PO SCH ×2 (08:28→20:26)
[2018-08-12] MEDS: Apixaban 5 MG TABLET PO SCH ×2 (08:28→20:26)
[2018-08-12] MEDS: ALPRAZolam 0.25 MG TABLET PO PRN ×2 (08:31→20:29)
[2018-08-12] MEDS: Budesonide/Formoterol 160/4.5 1 PUFF INH IH SCH ×2 (08:57→22:01)
[2018-08-12] MEDS: Albuterol 2.5 MG/3 ML NEBULIZER IH PRN (08:57)
--- NOTE | 2018-08-12 15:41 | Internal Med Progress Note ---
Date of Encounter: 08/12/18 Time of Encounter: 15:20 - Assessment and plan (1) Colovesical fistula Current Visit: No Status: Acute Assessment and plan: August 01. Status post repair with development of colostomy. Follow up with surgeons as directed. August 03. Follow-up with surgeons 08/09/2018 as scheduled. August 12. She states she has a follow-up appointment in October with surgeons (2) Weakness Current Visit: Yes Status: Acute Assessment and plan: August 01. Continue PT and OT intervention. (3) HTN (hypertension) Current Visit: No Status: Chronic Assessment and plan: August 01. Continue Cardizem, Lasix, and Cozaar. Blood pressure is borderline low. Will check orthostatic pressures in a.m. August 03. Cozaar was discontinued and blood pressure has improved. Continue Lasix and Cardizem. August 06. Blood pressure overall well controlled with occasional borderline hypotension. Continue Cardizem and lower dose Lasix. August 11. Now off Cardizem. Blood pressure will be monitored. Qualifiers: Hypertension type: essential hypertension Qualified Code(s): I10 - Es sential (primary) hypertension (4) COPD (chronic obstructive pulmonary disease) Current Visit: No Status: Acute Assessment and plan: August 01. Continue Symbicort and prn Proventil nebs Qualifiers: COPD type: emphysema Emphysema type: unspecified Qualified Code(s): J43.9 - Emphysema, unspecified (5) Atrial fibrillation Current Visit: No Status: Chronic Assessment and plan: August 01. Continue Cardizem and Eliquis. August 10. Blood pressure remains borderline low. Discontinue Cardizem. Continue Eliquis. Qualifiers: Atrial fibrillation type: persistent Qualified Code(s): I48.1 - Persistent atrial fibrillation (6) Anxiety Current Visit: No Status: Chronic Assessment and plan: August 01. Continue prn Xanax (7) Anemia Current Visit: Yes Status: Acute Assessment and plan: August 01. Hemoglobin stable at 9.1. Anemia testing showed iron 30, transferrin saturation 13%, transferrin 168, ferritin 340, B12 230, and folate 3.5. She will receive a B12 injection and start oral B12 supplement. Ferrous sulfate with ascorbic acid will also be started. August 03. Hemoglobin minimally improved at 9.2. Continue B12, ferrous sulfate, and ascorbic acid. August 06. Hemoglobin improved to 9.5. Continue present Rx. August 09. Hemoglobin slightly improved to 9.6. Continue present Rx. August 11. Hemoglobin improved to 10.5. Continue to monitor periodically. Qualifiers: Anemia type: unspecified type Qualified Code(s): D64.9 - Anemia, unspecified (8) Hypokalemia Current Visit: Yes Status: Acute Assessment and plan: August 03. Potassium level slightly low at 3.4. BN peptide normal at 40. Will reduce Lasix to 20 mg daily and give potassium supplement. Continue to monitor. August 06. Potassium normal at 4.1. Continue to monitor. August 09. Potassium remains normal at 4.2. Continue present Rx. (9) Hypomagnesemia Current Visit: Yes Status: Acute Assessment and plan: August 06. Magnesium level low at 1.4. Will order magnesium oxide August 09. Magnesium level normal at 1.9. Continue magnesium oxide. August 10. Recheck labs in a.m. August 11. Magnesium level stable at 1.9. Continue magnesium oxide. (10) Edema Current Visit: Yes Status: Acute Assessment and plan: August 10. Check BN peptide in a.m. Change from Lasix to Bumex. August 11. BN peptide normal at 74. Encouraged her to keep her legs elevated. Qualifiers: Edema type: unspecified Qualified Code(s): R60.9 - Edema, unspecified (11) Rash Current Visit: Yes Status: Acute Assessment and plan: August 10. Suspected drug allergy rash. Etiologic agent uncertain. Benadryl has been ordered. Prednisone will be added and reassessment tomorrow. August 11. Will increase prednisone and schedule loratadine. Continue Benadryl as needed. - Subjective Interval history: August 01. She has no new complaints and feels well. She reports she has had some mucoid drainage from her rectum despite a colostomy being present. August 03. She has no new complaints. A photograph of her colostomy site was sent to the surgeon's office yesterday. No significant changes in Rx were ordered August 06. She has no new complaints and feels stronger. August 09. She has no new complaints. She was seen by physicians at [facility] earlier today. She stated consideration for reversal of colostomy will be discussed further at her next appointment in mid October. August 10. She reports she does not feel well today and is tired. She was found by nursing staff to have a rash on her back. She reports it was pruritic yesterday but less today. August 11. She has no new complaints and feels slightly better. She reports the rash is more pruritic today. August. She went out for an appointment and traumatized her right lower leg on a wheelchair during a transfer. She has no new complaints otherwise. - Constitutional Vitals: Temp Pulse Resp BP Pulse Ox 97.5 F L 88 18 130/66 92 08/12/18 07:02 08/12/18 07:02 08/12/18 08:58 08/12/18 07:02 08/12/18 08:58 Exam: She is sitting in a chair at bedside resting comfortably. Her right mid lower anterior montes shows L-shaped skin tear with serous drainage. There is 1+ edema of the dorsum of foot and lower leg overall. The left leg shows MENA hose in place. Internal Medicine: Result - Labs CBC & Chem 7: 08/11/18 05:18 08/09/18 05:10 - VTE Documentation of Mechanical Device: Graduated compression elastic hosiery Consult Discharge Plan - Plan Referrals: Yaa Rogers, AIRCRAFT ELECTRICAL SYSTEMS SPECIALIST [Primary Care Provider] - 1 week
[2018-08-13] MEDS: Ascorbic Acid 500 MG TABLET PO SCH (05:59)
[2018-08-13] MEDS: Apixaban 5 MG TABLET PO SCH ×2 (08:24→21:18)
[2018-08-13] MEDS: Cyanocobalamin (B-12) 1,000 MCG TABLET PO SCH (08:25)
[2018-08-13] MEDS: predniSONE 20 MG TABLET PO SCH ×2 (08:25→17:43)
[2018-08-13] MEDS: Magnesium Oxide 400 MG TABLET PO SCH ×2 (08:25→21:18)
[2018-08-13] MEDS: Loratadine 10 MG TABLET PO SCH (08:25)
[2018-08-13] MEDS: Bumetanide 1 MG TABLET PO SCH (08:25)
[2018-08-13] MEDS: ALPRAZolam 0.25 MG TABLET PO PRN ×2 (08:30→21:26)
[2018-08-13] MEDS: Albuterol 2.5 MG/3 ML NEBULIZER IH PRN (10:08)
[2018-08-13] MEDS: Budesonide/Formoterol 160/4.5 1 PUFF INH IH SCH ×2 (10:08→21:54)
--- NOTE | 2018-08-13 11:42 | Internal Med Progress Note ---
Date of Encounter: 08/13/18 Time of Encounter: 11:20 - Assessment and plan (1) Colovesical fistula Current Visit: No Status: Acute Assessment and plan: August 01. Status post repair with development of colostomy. Follow up with surgeons as directed. August 03. Follow-up with surgeons 08/09/2018 as scheduled. August 12. She states she has a follow-up appointment in October with surgeons (2) Weakness Current Visit: Yes Status: Acute Assessment and plan: August 01. Continue PT and OT intervention. (3) HTN (hypertension) Current Visit: No Status: Chronic Assessment and plan: August 01. Continue Cardizem, Lasix, and Cozaar. Blood pressure is borderline low. Will check orthostatic pressures in a.m. August 03. Cozaar was discontinued and blood pressure has improved. Continue Lasix and Cardizem. August 06. Blood pressure overall well controlled with occasional borderline hypotension. Continue Cardizem and lower dose Lasix. August 11. Now off Cardizem. Blood pressure will be monitored. August 13. Blood pressure has risen. Restart Cardizem 120 mg daily. Decrease prednisone to 20 mg twice a day. Qualifiers: Hypertension type: essential hypertension Qualified Code(s): I10 - Essential (primary) hypertension (4) COPD (chronic obstructive pulmonary disease) Current Visit: No Status: Acute Assessment and plan: August 01. Continue Symbicort and prn Proventil nebs Qualifiers: COPD type: emphysema Emphysema type: unspecified Qualified Code(s): J43.9 - Emphysema, unspecified (5) Atrial fibrillation Current Visit: No Status: Chronic Assessment and plan: August 01. Continue Cardizem and Eliquis. August 10. Blood pressure remains borderline low. Discontinue Cardizem. Continue Eliquis. August 13. Blood pressure and heart rate have risen. Restart Cardizem. Continue Eliquis. Qualifiers: Atrial fibrillation type: persistent Qualified Code(s): I48.1 - Persistent atrial fibrillation (6) Anxiety Current Visit: No Status: Chronic Assessment and plan: August 01. Continue prn Xanax (7) Anemia Current Visit: Yes Status: Acute Assessment and plan: August 01. Hemoglobin stable at 9.1. Anemia testing showed iron 30, transferrin saturation 13%, transferrin 168, ferritin 340, B12 230, and folate 3.5. She will receive a B12 injection and start oral B12 supplement. Ferrous sulfate with ascorbic acid will also be started. August 03. Hemoglobin minimally improved at 9.2. Continue B12, ferrous sulfate, and ascorbic acid. August 06. Hemoglobin improved to 9.5. Continue present Rx. August 09. Hemoglobin slightly improved to 9.6. Continue present Rx. August 11. Hemoglobin improved to 10.5. Continue to monitor periodically. Qualifiers: Anemia type: unspecified type Qualified Code(s): D64.9 - Anemia, unspecified (8) Hypokalemia Current Visit: Yes Status: Acute Assessment and plan: August 03. Potassium level slightly low at 3.4. BN peptide normal at 40. Will reduce Lasix to 20 mg daily and give potassium supplement. Continue to monitor. August 06. Potassium normal at 4.1. Continue to monitor. August 09. Potassium remains normal at 4.2. Continue present Rx. (9) Hypomagnesemia Current Visit: Yes Status: Acute Assessment and plan: August 06. Magnesium level low at 1.4. Will order magnesium oxide August 09. Magnesium level normal at 1.9. Continue magnesium oxide. August 10. Recheck labs in a.m. August 11. Magnesium level stable at 1.9. Continue magnesium oxide. (10) Edema Current Visit: Yes Status: Acute Assessment and plan: August 10. Check BN peptide in a.m. Change from Lasix to Bumex. August 11. BN peptide normal at 74. Encouraged her to keep her legs elevated. August 13. Continue Bumex. Decrease prednisone. Qualifiers: Edema type: unspecified Qualified Code(s): R60.9 - Edema, unspecified (11) Rash Current Visit: Yes Status: Acute Assessment and plan: August 10. Suspected drug allergy rash. Etiologic agent uncertain. Benadryl has been ordered. Prednisone will be added and reassessment tomorrow. August 11. Will increase prednisone and schedule loratadine. Continue Benadryl as needed. August 13. Significantly improved. Begin prednisone taper. - Subjective Interval history: August 01. She has no new complaints and feels well. She reports she has had some mucoid drainage from her rectum despite a colostomy being present. August 03. She has no new complaints. A photograph of her colostomy site was sent to the surgeon's office yesterday. No significant changes in Rx were ordered August 06. She has no new complaints and feels stronger. August 09. She has no new complaints. She was seen by physicians at [facility] earlier today. She stated consideration for reversal of colostomy will be discussed further at her next appointment in mid October. August 10. She reports she does not feel well today and is tired. She was found by nursing staff to have a rash on her back. She reports it was pruritic yesterday but less today. August 11. She has no new complaints and feels slightly better. She reports the rash is more pruritic today. August 12. She went out for an appointment and traumatized her right lower leg on a wheelchair during a transfer. She has no new complaints otherwise. August 13. She has no new complaints and feels better. - Constitutional Vitals: Temp Pulse Resp BP Pulse Ox 97.6 F 110 18 168/82 91 08/13/18 07:40 08/13/18 07:40 08/13/18 10:08 08/13/18 07:40 08/13/18 10:08 Exam: She is resting comfortably in a chair at bedside and appears in no acute distress. Her right leg has a gauze wrap overlying the site of injury. Edema appears less today. Her left leg has MENA hose in place. Rash has essentially resolved on her back. Her affect is bright and cheerful. I reviewed her medications and lab results. Internal Medicine: Result - Labs CBC & Chem 7: 08/11/18 05:18 08/09/18 05:10 - VTE Documentation of Mechanical Device: Graduated compression elastic hosiery Consult Discharge Plan - Plan Referrals: Yaa Rogers, CAREER COUNSELOR [Primary Care Provider] - 1 week
[2018-08-14] MEDS: Ascorbic Acid 500 MG TABLET PO SCH (06:30)
[2018-08-14] MEDS: Cyanocobalamin (B-12) 1,000 MCG TABLET PO SCH (10:03)
[2018-08-14] MEDS: ALPRAZolam 0.25 MG TABLET PO PRN ×2 (10:03→21:13)
[2018-08-14] MEDS: Magnesium Oxide 400 MG TABLET PO SCH ×2 (10:03→21:13)
[2018-08-14] MEDS: Bumetanide 1 MG TABLET PO SCH (10:03)
[2018-08-14] MEDS: predniSONE 20 MG TABLET PO SCH ×2 (10:03→18:04)
[2018-08-14] MEDS: Apixaban 5 MG TABLET PO SCH ×2 (10:03→21:13)
[2018-08-14] MEDS: Loratadine 10 MG TABLET PO SCH (10:04)
[2018-08-14] MEDS: Budesonide/Formoterol 160/4.5 1 PUFF INH IH SCH ×2 (10:20→21:18)
[2018-08-15 00:06] LABS: Hematocrit 38.2 % (35.3-44.9); Hemoglobin 11.9 g/dL (11.5-15.4); Mean Corpuscular HGB Conc 31.2 g/dL (31.6-35.5); Mean Corpuscular Hemoglobin 29.5 pg (28.0-33.3); Mean Corpuscular Volume 94.8 fL (83.0-100.0); Mean Platelet Volume 8.3 fL (9.4-12.4); Platelet Count 542 K/mcL (140-400); Red Blood Count 4.03 M/mcL (3.82-4.97); Red Cell Distribution Width 15.6 % (11.5-14.5)
[2018-08-15 01:37] LABS: Lymphocytes # 3.2 K/mcL (0.6-4.6); Neutrophils # 7.8 K/mcL (1.6-8.9); Platelet Estimate Increased (Normal); Smudge Cells Present (Not Present)
[2018-08-15 01:38] LABS: Anisocytosis 1+ (Not Present); Polychromasia 1+ (Not Present); Stomatocytes 1+ (Not Present)
[2018-08-15 01:39] LABS: Basophilic Stippling 1+ (Not Present); Spherocytes 1+ (Not Present)
[2018-08-15 01:41] LABS: Toxic Granulation Present (Not Present)
[2018-08-15] MEDS: Ascorbic Acid 500 MG TABLET PO SCH (06:44)
[2018-08-15] MEDS: predniSONE 20 MG TABLET PO SCH (08:11)
[2018-08-15] MEDS: Bumetanide 1 MG TABLET PO SCH (08:11)
[2018-08-15] MEDS: Cyanocobalamin (B-12) 1,000 MCG TABLET PO SCH (08:11)
[2018-08-15] MEDS: Loratadine 10 MG TABLET PO SCH (08:11)
[2018-08-15] MEDS: ALPRAZolam 0.25 MG TABLET PO PRN ×2 (08:11→21:19)
[2018-08-15] MEDS: Magnesium Oxide 400 MG TABLET PO SCH ×2 (08:11→21:16)
[2018-08-15] MEDS: Albuterol 2.5 MG/3 ML NEBULIZER IH PRN (10:42)
[2018-08-15] MEDS: Budesonide/Formoterol 160/4.5 1 PUFF INH IH SCH ×2 (10:43→21:14)
--- NOTE | 2018-08-15 10:53 | Internal Med Progress Note ---
Date of Encounter: 08/15/18 Time of Encounter: 10:46 - Assessment and plan (1) Colovesical fistula Current Visit: No Status: Acute Assessment and plan: August 01. Status post repair with development of colostomy. Follow up with surgeons as directed. August 03. Follow-up with surgeons 08/09/2018 as scheduled. August 12. She states she has a follow-up appointment in October with surgeons (2) Weakness Current Visit: Yes Status: Acute Assessment and plan: August 01. Continue PT and OT intervention. (3) HTN (hypertension) Current Visit: No Status: Chronic Assessment and plan: August 01. Continue Cardizem, Lasix, and Cozaar. Blood pressure is borderline low. Will check orthostatic pressures in a.m. August 03. Cozaar was discontinued and blood pressure has improved. Continue Lasix and Cardizem. August 06. Blood pressure overall well controlled with occasional borderline hypotension. Continue Cardizem and lower dose Lasix. August 11. Now off Cardizem. Blood pressure will be monitored. August 13. Blood pressure has risen. Restart Cardizem 120 mg daily. Decrease prednisone to 20 mg twice a day. August 15. Pressure has risen further. Start metoprolol at low dose to control heart rate and blood pressure. Qualifiers: Hypertension type: essential hypertension Qualified Code(s): I10 - Essential (primary) hypertension (4) COPD (chronic obstructive pulmonary disease) Current Visit: No Status: Acute Assessment and plan: August 01. Continue Symbicort and prn Proventil nebs Qualifiers: COPD type: emphysema Emphysema type: unspecified Qualified Code(s): J43.9 - Emphysema, unspecified (5) Atrial fibrillation Current Visit: No Status: Chronic Assessment and plan: August 01. Continue Cardizem and Eliquis. August 10. Blood pressure remains borderline low. Discontinue Cardizem. Continu e Eliquis. August 13. Blood pressure and heart rate have risen. Restart Cardizem. Continue Eliquis. August 15. Continue Cardizem and Eliquis. Start low-dose metoprolol. Qualifiers: Atrial fibrillation type: persistent Qualified Code(s): I48.1 - Persistent atrial fibrillation (6) Anxiety Current Visit: No Status: Chronic Assessment and plan: August 01. Continue prn Xanax (7) Anemia Current Visit: Yes Status: Acute Assessment and plan: August 01. Hemoglobin stable at 9.1. Anemia testing showed iron 30, transferrin saturation 13%, transferrin 168, ferritin 340, B12 230, and folate 3.5. She will receive a B12 injection and start oral B12 supplement. Ferrous sulfate with ascorbic acid will also be started. August 03. Hemoglobin minimally improved at 9.2. Continue B12, ferrous sulfate, and ascorbic acid. August 06. Hemoglobin improved to 9.5. Continue present Rx. August 09. Hemoglobin slightly improved to 9.6. Continue present Rx. August 11. Hemoglobin improved to 10.5. Continue to monitor periodically. August 15. Hemoglobin normal 11.9 on 08/14/2018. Continue to monitor. Qualifiers: Anemia type: unspecified type Qualified Code(s): D64.9 - Anemia, unspecified (8) Hypokalemia Current Visit: Yes Status: Acute Assessment and plan: August 03. Potassium level slightly low at 3.4. BN peptide normal at 40. Will reduce Lasix to 20 mg daily and give potassium supplement. Continue to monitor. August 06. Potassium normal at 4.1. Continue to monitor. August 09. Potassium remains normal at 4.2. Continue present Rx. August 15. Recheck labs in a.m. (9) Hypomagnesemia Current Visit: Yes Status: Acute Assessment and plan: August 06. Magnesium level low at 1.4. Will order magnesium oxide August 09. Magnesium level normal at 1.9. Continue magnesium oxide. August 10. Recheck labs in a.m. August 11. Magnesium level stable at 1.9. Continue magnesium oxide. August 15. Recheck labs in a.m. (10) Edema Current Visit: Yes Status: Acute Assessment and plan: August 10. Check BN peptide in a.m. Change from Lasix to Bumex. August 11. BN peptide normal at 74. Encouraged her to keep her legs elevated. August 13. Continue Bumex. Decrease prednisone. August 15. Further improved. Decrease prednisone continue Bumex. Qualifiers: Edema type: unspecified Qualified Code(s): R60.9 - Edema, unspecified (11) Rash Current Visit: Yes Status: Acute Assessment and plan: August 10. Suspected drug allergy rash. Etiologic agent uncertain. Benadryl has been ordered. Prednisone will be added and reassessment tomorrow. August 11. Will increase prednisone and schedule loratadine. Continue Benadryl as needed. August 13. Significantly improved. Begin prednisone taper. - Subjective Interval history: August 01. She has no new complaints and feels well. She reports she has had some mucoid drainage from her rectum despite a colostomy being present. August 03. She has no new complaints. A photograph of her colostomy site was sent to the surgeon's office yesterday. No significant changes in Rx were ordered August 06. She has no new complaints and feels stronger. August 09. She has no new complaints. She was seen by physicians at [facility] earlier today. She stated consideration for reversal of colostomy will be discussed further at her next appointment in mid October. August 10. She reports she does not feel well today and is tired. She was found by nursing staff to have a rash on her back. She reports it was pruritic yesterday but less today. August 11. She has no new complaints and feels slightly better. She reports the rash is more pruritic today. August 12. She went out for an appointment and traumatized her right lower leg on a wheelchair during a transfer. She has no new complaints otherwise. August 13. She has no new complaints and feels better. August 15. She has no new complaints and feels better. - Constitutional Vitals: Temp Pulse Resp BP Pulse Ox 96.3 F L 102 17 151/89 92 08/15/18 06:43 08/15/18 06:43 08/15/18 06:43 08/15/18 06:43 08/15/18 06:43 Exam: She is sitting in a chair at bedside resting comfortably. Her affect is bright and cheerful. Her lower legs are wrapped in gauze and Coban. There appears to be decreased extremity edema overall. Her affect is bright and cheerful. I reviewed her medications and lab results. Internal Medicine: Result - Labs CBC & Chem 7: 08/14/18 23:52 08/09/18 05:10 Labs: Short CBC 08/14/18 Range/Units 23:52 WBC 12.2 H D (4.3-11.1) K/mcL Hgb 11.9 (11.5-15.4) g/dL Hct 38.2 (35.3-44.9) % Plt Count 542 H (140-400) K/mcL Neutrophils # 7.8 (1.6-8.9) K/mcL - VTE Documentation of Mechanical Device: Graduated compression elastic hosiery Consult Discharge Plan - Plan Referrals: Yaa Rogers, AUTOMATIC PACKER OPERATOR [Primary Care Provider] - 1 week
[2018-08-15 16:02] LABS: Bilirubin,Urine Negative (Negative); Blood,Urine Large (Negative); Clarity,Urine Cloudy (Clear); Color,Urine Yellow (Yellow); Glucose,Urine (UA) Normal (Normal); Ketones,Urine Negative (Negative); Leukocyte Esterase,Urine Large (Negative); Nitrite,Urine Positive (Negative); Protein,Urine 100 mg/dL (Neg-Trace); Urobilinogen,Urine Normal (Normal)
[2018-08-15 16:12] LABS: Bacteria,Urine Many per hpf (None-Few); Hyaline Casts,Urine Few per lpf (None-Few); Mucus,Urine Few (Few); RBC,Urine TNTC per hpf (0-3); Squamous Epithelial Cell,Urine Few per lpf (None-Few); WBC,Urine 30-50 per hpf (0-3)
[2018-08-15] MEDS: predniSONE 10 MG TABLET PO SCH (17:33)
[2018-08-16 06:41] LABS: Hematocrit 38.7 % (35.3-44.9); Mean Corpuscular Hemoglobin 29.9 pg (28.0-33.3); Mean Corpuscular Volume 96.5 fL (83.0-100.0); Mean Platelet Volume 8.4 fL (9.4-12.4); Platelet Count 515 K/mcL (140-400); Red Blood Count 4.01 M/mcL (3.82-4.97); Red Cell Distribution Width 15.6 % (11.5-14.5)
[2018-08-16 07:16] LABS: Alanine Aminotransferase 91 Units/L (7-52); Albumin 3.3 g/dL (3.5-5.7); Albumin/Globulin Ratio 1.5 (1.1-2.2); Alkaline Phosphatase 97 Units/L (34-104); Aspartate Amino Transferase 42 Units/L (13-39); BUN/Creatinine Ratio 35 (6-26); Bilirubin,Total 0.3 mg/dL (0.3-1.0); Blood Urea Nitrogen 19 mg/dL (8-23); Calcium 8.7 mg/dL (8.6-10.3); Carbon Dioxide 36 mEq/L (23-29); Chloride 95 mEq/L (98-107); Globulin 2.2 g/dL (2.4-3.5); Glucose 86 mg/dL (70-105); Magnesium 2.3 mg/dL (1.6-2.6); Osmolality,Calculated 286 (280-300); Potassium 4.1 mEq/L (3.5-5.1); Sodium 137 mEq/L (136-145); Total Protein 5.5 g/dL (6.4-8.9); eGFR For Non-African Americans > 60 (> 60)
[2018-08-16] MEDS: Ascorbic Acid 500 MG TABLET PO SCH (07:45)
[2018-08-16 08:44] LABS: Eosinophils # 0.7 K/mcL (0.0-0.6); Lymphocytes # 4.6 K/mcL (0.6-4.6); Monocytes # 0.5 K/mcL (0.0-1.3); Neutrophils # 5.8 K/mcL (1.6-8.9); Platelet Estimate Increased (Normal); Reactive Lymphocytes Present (Not Present)
[2018-08-16] MEDS: Magnesium Oxide 400 MG TABLET PO SCH (09:01)
[2018-08-16] MEDS: Cyanocobalamin (B-12) 1,000 MCG TABLET PO SCH (09:01)
[2018-08-16] MEDS: Loratadine 10 MG TABLET PO SCH (09:01)
[2018-08-16] MEDS: ALPRAZolam 0.25 MG TABLET PO PRN ×2 (09:01→22:01)
[2018-08-16] MEDS: predniSONE 10 MG TABLET PO SCH ×2 (09:02→17:35)
[2018-08-16] MEDS: Bumetanide 1 MG TABLET PO SCH (09:02)
[2018-08-16] MEDS: Budesonide/Formoterol 160/4.5 1 PUFF INH IH SCH ×2 (09:47→22:42)
[2018-08-16] MEDS: Lactobacillus 1 EACH CAP.SPRINK PO SCH (22:06)
[2018-08-16] MEDS: Albuterol 2.5 MG/3 ML NEBULIZER IH PRN (22:42)
[2018-08-17 05:27] LABS: Basophils # 0.1 K/mcL (0.0-0.2); Basophils % 0.5 %; Eosinophils # 0.1 K/mcL (0.0-0.6); Eosinophils % 0.8 %; Hematocrit 38.8 % (35.3-44.9); Hemoglobin 12.2 g/dL (11.5-15.4); Immature Granulocytes % 2.4 % (0-4); Lymphocytes # 2.2 K/mcL (0.6-4.6); Lymphocytes % 13.5 %; Mean Corpuscular HGB Conc 31.4 g/dL (31.6-35.5); Mean Corpuscular Hemoglobin 30.1 pg (28.0-33.3); Mean Corpuscular Volume 95.8 fL (83.0-100.0); Mean Platelet Volume 8.1 fL (9.4-12.4); Monocytes # 0.9 K/mcL (0.0-1.3); Monocytes % 5.4 %; Neutrophils # 12.4 K/mcL (1.6-8.9); Platelet Count 449 K/mcL (140-400); Red Blood Count 4.05 M/mcL (3.82-4.97); Red Cell Distribution Width 15.5 % (11.5-14.5); Segmented Neutrophils % 77.4 %
[2018-08-17 05:47] LABS: Alanine Aminotransferase 81 Units/L (7-52); Albumin 3.2 g/dL (3.5-5.7); Albumin/Globulin Ratio 1.5 (1.1-2.2); Alkaline Phosphatase 87 Units/L (34-104); Aspartate Amino Transferase 30 Units/L (13-39); BUN/Creatinine Ratio 38 (6-26); Bilirubin,Total 0.3 mg/dL (0.3-1.0); Blood Urea Nitrogen 20 mg/dL (8-23); Calcium 8.5 mg/dL (8.6-10.3); Carbon Dioxide 35 mEq/L (23-29); Chloride 95 mEq/L (98-107); Globulin 2.2 g/dL (2.4-3.5); Glucose 106 mg/dL (70-105); Osmolality,Calculated 285 (280-300); Potassium 4.4 mEq/L (3.5-5.1); Sodium 136 mEq/L (136-145); Total Protein 5.4 g/dL (6.4-8.9); eGFR For Non-African Americans > 60 (> 60)
[2018-08-17] MEDS: Ascorbic Acid 500 MG TABLET PO SCH (06:49)
[2018-08-17] MEDS: Budesonide/Formoterol 160/4.5 1 PUFF INH IH SCH ×2 (09:18→22:42)
[2018-08-17] MEDS: Albuterol 2.5 MG/3 ML NEBULIZER IH PRN ×2 (15:31→22:46)
[2018-08-17] MEDS: predniSONE 10 MG TABLET PO SCH ×2 (16:06→16:08)
[2018-08-17] MEDS: Cyanocobalamin (B-12) 1,000 MCG TABLET PO SCH (16:07)
[2018-08-17] MEDS: Lactobacillus 1 EACH CAP.SPRINK PO SCH ×2 (16:07→20:27)
[2018-08-17] MEDS: Loratadine 10 MG TABLET PO SCH (16:07)
[2018-08-17] MEDS: ALPRAZolam 0.25 MG TABLET PO PRN (16:08)
[2018-08-17] MEDS: Bumetanide 1 MG TABLET PO SCH (16:08)
--- NOTE | 2018-08-17 16:59 | Internal Med Progress Note ---
Date of Encounter: 08/17/18 Time of Encounter: 16:50 - Assessment and plan (1) Colovesical fistula Current Visit: No Status: Acute Assessment and plan: August 01. Status post repair with development of colostomy. Follow up with surgeons as directed. August 03. Follow-up with surgeons 08/09/2018 as scheduled. August 12. She states she has a follow-up appointment in October with surgeons (2) Weakness Current Visit: Yes Status: Acute Assessment and plan: August 01. Continue PT and OT intervention. (3) HTN (hypertension) Current Visit: No Status: Chronic Assessment and plan: August 01. Continue Cardizem, Lasix, and Cozaar. Blood pressure is borderline low. Will check orthostatic pressures in a.m. August 03. Cozaar was discontinued and blood pressure has improved. Continue Lasix and Cardizem. August 06. Blood pressure overall well controlled with occasional borderline hypotension. Continue Cardizem and lower dose Lasix. August 11. Now off Cardizem. Blood pressure will be monitored. August 13. Blood pressure has risen. Restart Cardizem 120 mg daily. Decrease prednisone to 20 mg twice a day. August 15. Pressure has risen further. Start metoprolol at low dose to control heart rate and blood pressure. Qualifiers: Hypertension type: essential hypertension Qualified Code(s): I10 - Essential (primary) hypertension (4) COPD (chronic obstructive pulmonary disease) Current Visit: No Status: Acute Assessment and plan: August 01. Continue Symbicort and prn Proventil nebs Qualifiers: COPD type: emphysema Emphysema type: unspecified Qualified Code(s): J43.9 - Emphysema, unspecified (5) Atrial fibrillation Current Visit: No Status: Chronic Assessment and plan: August 01. Continue Cardizem and Eliquis. August 10. Blood pressure remains borderline low. Discontinue Cardizem. Continu e Eliquis. August 13. Blood pressure and heart rate have risen. Restart Cardizem. Continue Eliquis. August 15. Continue Cardizem and Eliquis. Start low-dose metoprolol. Qualifiers: Atrial fibrillation type: persistent Qualified Code(s): I48.1 - Persistent atrial fibrillation (6) Anxiety Current Visit: No Status: Chronic Assessment and plan: August 01. Continue prn Xanax (7) Anemia Current Visit: Yes Status: Acute Assessment and plan: August 01. Hemoglobin stable at 9.1. Anemia testing showed iron 30, transferrin saturation 13%, transferrin 168, ferritin 340, B12 230, and folate 3.5. She will receive a B12 injection and start oral B12 supplement. Ferrous sulfate with ascorbic acid will also be started. August 03. Hemoglobin minimally improved at 9.2. Continue B12, ferrous sulfate, and ascorbic acid. August 06. Hemoglobin improved to 9.5. Continue present Rx. August 09. Hemoglobin slightly improved to 9.6. Continue present Rx. August 11. Hemoglobin improved to 10.5. Continue to monitor periodically. August 15. Hemoglobin normal 11.9 on 08/14/2018. Continue to monitor. August 27. Hemoglobin stable at 12.2. Continue B12, ferrous sulfate, and ascorbic acid Qualifiers: Anemia type: unspecified type Qualified Code(s): D64.9 - Anemia, unspecified (8) Hypokalemia Current Visit: Yes Status: Acute Assessment and plan: August 03. Potassium level slightly low at 3.4. BN peptide normal at 40. Will reduce Lasix to 20 mg daily and give potassium supplement. Continue to monitor. August 06. Potassium normal at 4.1. Continue to monitor. August 09. Potassium remains normal at 4.2. Continue present Rx. August 15. Recheck labs in a.m. (9) Hypomagnesemia Current Visit: Yes Status: Acute Assessment and plan: August 06. Magnesium level low at 1.4. Will order magnesium oxide August 09. Magnesium level normal at 1.9. Continue magnesium oxide. August 10. Recheck labs in a.m. August 11. Magnesium level stable at 1.9. Continue magnesium oxide. August 15. Recheck labs in a.m. August 17. Magnesium level was normal at 2.3. Magnesium oxide was discontinued yesterday. (10) Edema Current Visit: Yes Status: Acute Assessment and plan: August 10. Check BN peptide in a.m. Change from Lasix to Bumex. August 11. BN peptide normal at 74. Encouraged her to keep her legs elevated. August 13. Continue Bumex. Decrease prednisone. August 15. Further improved. Decrease prednisone continue Bumex. August 17. Discontinue prednisone and continue Bumex. Qualifiers: Edema type: unspecified Qualified Code(s): R60.9 - Edema, unspecified (11) Rash Current Visit: Yes Status: Acute Assessment and plan: August 10. Suspected drug allergy rash. Etiologic agent uncertain. Benadryl has been ordered. Prednisone will be added and reassessment tomorrow. August 11. Will increase prednisone and schedule loratadine. Continue Benadryl as needed. August 13. Significantly improved. Begin prednisone taper. August 17. Discontinue prednisone. (12) Leukocytosis Current Visit: No Status: Acute Assessment and plan: August 17. Present on most labs since 2013. Urine culture showed mixed organisms. Chest CT 07/24/2018 reviewed. She had bronchoscopy with BAL just prior to discharge from [facility] to [facility] swing bed. Chest x-ray today showed early congestive changes with small right-sided pleural effusion. Continue Cipro and start doxycycline. Recheck labs in a.m. Qualifiers: Leukocytosis type: unspecified Qualified Code(s): D72.829 - Elevated white blood cell count, unspecified - Subjective Interval history: August 01. She has no new complaints and feels well. She reports she has had some mucoid drainage from her rectum despite a colostomy being present. August 03. She has no new complaints. A photograph of her colostomy site was sent to the surgeon's office yesterday. No significant changes in Rx were ordered August 06. She has no new complaints and feels stronger. August 09. She has no new complaints. She was seen by physicians at [facility] earlier today. She stated consideration for reversal of colostomy will be discussed further at her next appointment in mid October. August 2. She reports she does not feel well today and is tired. She was found by nursing staff to have a rash on her back. She reports it was pruritic yest erday but less today. August 3. She has no new complaints and feels slightly better. She reports the rash is more pruritic today. August 12. She went out for an appointment and traumatized her right lower leg on a wheelchair during a transfer. She has no new complaints otherwise. August 13. She has no new complaints and feels better. August 15. She has no new complaints and feels better. August 17. She states she feel slightly dyspneic. She denies pain or significant cough. - Constitutional Vitals: Temp Pulse Resp BP Pulse Ox 97.3 F L 106 24 110/64 94 08/17/18 07:03 08/17/18 07:03 08/17/18 15:32 08/17/18 07:03 08/17/18 15:32 Exam: She is resting in bed wearing oxygen. She is appropriate in conversation and does not appear dyspneic. Lungs show a few scattered rhonchi. There is no expiratory wheezing, inspiratory crackles, or egophony. I reviewed her medications, chest x-ray, and lab results. Internal Medicine: Result - Labs CBC & Chem 7: 08/17/18 05:08 08/17/18 05:08 Labs: Short CBC 08/17/18 Range/Units 05:08 WBC 16.0 H (4.3-11.1) K/mcL Hgb 12.2 (11.5-15.4) g/dL Hct 38.8 (35.3-44.9) % Plt Count 449 H (140-400) K/mcL Neutrophils # 12.4 H (1.6-8.9) K/mcL BMP 08/17/18 05:08 Sodium 136 Potassium 4.4 Chloride 95 L Carbon Dioxide 35 H BUN 20 Creatinine 0.52 L Glucose 106 H Calcium 8.5 L Liver Function 08/17/18 Range/Units 05:08 Total Bilirubin 0.3 (0.3-1.0) mg/dL AST 30 (13-39) Units/L ALT 81 H (7-52) Units/L Alkaline Phosphatase 87 (34-104) Units/L Albumin 3.2 L (3.5-5.7) g/dL - Impressions Impressions Chest X-Ray 08/17/18 10:39 IMPRESSION: Early congestive changes with small right-sided pleural effusion. D/ / 08/17/2018 12:28:49 Jamison Kaplan MD / kassandra Interpreting Provider: Jamison Kaplan MD - VTE Documentation of Mechanical Device: Graduated compression elastic hosiery Consult Discharge Plan - Plan Referrals: Yaa Rogers, DIRECTOR OF STUDENT AFFAIRS [Primary Care Provider] - 1 week
[2018-08-17] MEDS: Doxycycline 100 MG CAPSULE PO SCH (20:27)
[2018-08-18 06:00] LABS: Basophils # 0.1 K/mcL (0.0-0.2); Basophils % 0.6 %; Eosinophils # 0.1 K/mcL (0.0-0.6); Eosinophils % 0.6 %; Hematocrit 40.6 % (35.3-44.9); Hemoglobin 12.9 g/dL (11.5-15.4); Immature Granulocytes % 2.1 % (0-4); Lymphocytes # 2.5 K/mcL (0.6-4.6); Lymphocytes % 17.2 %; Mean Corpuscular HGB Conc 31.8 g/dL (31.6-35.5); Mean Corpuscular Hemoglobin 30.4 pg (28.0-33.3); Mean Corpuscular Volume 95.5 fL (83.0-100.0); Mean Platelet Volume 8.6 fL (9.4-12.4); Monocytes # 0.9 K/mcL (0.0-1.3); Monocytes % 6.1 %; Neutrophils # 10.6 K/mcL (1.6-8.9); Platelet Count 412 K/mcL (140-400); Red Blood Count 4.25 M/mcL (3.82-4.97); Red Cell Distribution Width 15.8 % (11.5-14.5); Segmented Neutrophils % 73.4 %
[2018-08-18] MEDS: Ascorbic Acid 500 MG TABLET PO SCH (06:27)
[2018-08-18 06:32] LABS: BUN/Creatinine Ratio 43 (6-26); Blood Urea Nitrogen 26 mg/dL (8-23); Calcium 8.8 mg/dL (8.6-10.3); Carbon Dioxide 34 mEq/L (23-29); Chloride 96 mEq/L (98-107); Glucose 96 mg/dL (70-105); Osmolality,Calculated 289 (280-300); Potassium 4.3 mEq/L (3.5-5.1); Sodium 137 mEq/L (136-145); eGFR For Non-African Americans > 60 (> 60)
[2018-08-18 08:14] VITALS: BP 109/50
[2018-08-18] MEDS: Cyanocobalamin (B-12) 1,000 MCG TABLET PO SCH (08:36)
[2018-08-18] MEDS: Doxycycline 100 MG CAPSULE PO SCH (08:37)
[2018-08-18] MEDS: Lactobacillus 1 EACH CAP.SPRINK PO SCH (08:37)
[2018-08-18] MEDS: ALPRAZolam 0.25 MG TABLET PO PRN (08:37)
[2018-08-18] MEDS: Loratadine 10 MG TABLET PO SCH (08:37)
[2018-08-18] MEDS: Bumetanide 1 MG TABLET PO SCH (08:37)
[2018-08-18] MEDS: Budesonide/Formoterol 160/4.5 1 PUFF INH IH SCH (09:46)
--- NOTE | 2018-08-18 10:27 | Discharge Summary ---
Date of Encounter: 08/18/18 Time of Encounter: 10:13 - Discharge Diagnosis (1) Colovesical fistula Priority: Primary Status: Acute (2) Weakness Priority: Secondary Status: Acute (3) HTN (hypertension) Priority: Secondary Status: Chronic Qualifiers: Hypertension type: essential hypertension Qualified Code(s): I10 - Essential (primary) hypertension (4) COPD (chronic obstructive pulmonary disease) Priority: Secondary Status: Chronic Qualifiers: COPD type: emphysema Emphysema type: unspecified Qualified Code(s): J43.9 - Emphysema, unspecified (5) Atrial fibrillation Priority: Secondary Status: Chronic Qualifiers: Atrial fibrillation type: persistent Qualified Code(s): I48.1 - Persistent atrial fibrillation (6) Anxiety Priority: Secondary Status: Chronic (7) Anemia Priority: Secondary Status: Acute Qualifiers: Anemia type: unspecified type Qualified Code(s): D64.9 - Anemia, unspecified (8) Hypokalemia Priority: Secondary Status: Acute (9) Hypomagnesemia Priority: Secondary Status: Acute (10) Edema Priority: Secondary Status: Acute Qualifiers: Edema type: unspecified Qualified Code(s): R60.9 - Edema, unspecified (11) Rash Priority: Secondary Status: Resolved (12) Leukocytosis Priority: Secondary Status: Acute Qualifiers: Leukocytosis type: unspecified Qualified Code(s): D72.829 - Elevated white blood cell count, unspecified Hospital course: Ms. Morrison is a 68 year old female who was hospitalized at [facility] July 04- July 29 after presenting at [facility] with sepsis, acute diverticulitis with possible small bowel obstruction, and colovesicular fistula. She had surgical repair of the fistula and creation of a diverting colostomy. She underwent IR CT-guided drainage for fluid collection/abscess postoperatively. She had mucus plugging and underwent bronchoscopy with BAL. She developed hydronephrosis and required left ureteral stent with residual indwelling Farias. She had new onset AF with RVR and was placed on Eliquis. She was discharged to [facility] swing bed for ongoing care needs. Initial orders were written by the discharging physicians at [facility]. I saw her on July 30 and performed a swing bed history and physical. She had physical therapy and occupational therapy evaluations with ongoing intervention. She made slow progress in therapy. She will continue with home PT and OT as an outpatient. She had follow-up visit with her surgeon 08/09/2018. A return appointment is scheduled in October. Dr. Minor will give prescriptions and instructions regarding her colostomy care needs. Cozaar was discontinued. Toprol-XL was started to improve heart rate and blood pressure. She will continue Lasix and Cardizem as at home. Anemia testing showed findings consistent with B12 and iron deficiency. She was given supplementation during her hospital stay and will continue these at discharge. Supplemental potassium was given and hypokalemia resolved. Her PCP can monitor this as an outpatient. She had hypomagnesemia which had normalized with supplementation by day of discharge. Edema improved on Bumex. She will resume Lasix at discharge and her PCP can monitor edema. She developed a suspected drug allergy rash on August 10. Benadryl and prednisone were given and the rash resolved by day of discharge. The etiology of the rash was not determined with certainty. Her PCP can monitor. She developed leukocytosis with a WBC rising to 16.0 on August 17. It had improved to 14.4 on August 18 with use of Cipro and doxycycline. Antibiotics will be continued for 3 days at discharge with lactobacillus. Review of archive lab shows leukocytosis present on most labs since 2013. On August 18 she felt stable for discharge home. She will follow with her PCP within 1 week. She will continue BiPAP use as at home. DME needs include bedside commode and front wheeled walker. - Time Spent with Patient Total time spent providing and/or coordinating discharge services: - Discharge Medications Prescriptions: New Ascorbic Acid [Vitamin C] 500 mg PO DAILY@0630 #30 tablet Ciprofloxacin [Cipro] 500 mg PO BID #6 tablet Cyanocobalamin (B-12) [Vitamin B12] 1,000 mcg PO DAILY #30 tablet Doxycycline 100 mg PO BID #6 capsule Ferrous Sulfate 325 mg PO DAILY@0630 #30 tablet Lactobacillus [Culturelle] 1 each PO BID #6 cap.sprink Metoprolol XL (24 HR) Succ [Toprol XL] 25 mg PO DAILY #30 tab.er.24h Potassium Chloride 10 meq PO BIDWM #14 tab.er.prt Continue Sertraline [Zoloft] 100 mg PO DAILY Budesonide/Formoterol 160/4.5 [Symbicort 160/4.5] 2 puff IH BIDR Albuterol Sulfate [Albuterol Inhaler] 2 puff IH Q4H PRN PRN Reason: Shortness Of Breath/Wheezing Albuterol Neb [Proventil Neb] 2.5 mg IH Q4H PRN PRN Reason: Shortness Of Breath/Wheezing Ondansetron HCl 4 mg PO QID PRN PRN Reason: Nausea ALPRAZolam [Xanax 0.5 MG Tablet] 0.5 mg PO TID PRN PRN Reason: Anxiety Lactulose 30 ml PO BID PRN PRN Reason: Constipation GuaiFENesin Liq [Robitussin Liq] 200 mg PO Q6HR PRN udc PRN Reason: Cough Apixaban [Eliquis] 5 mg PO BID tablet Benzonatate [Tessalon] 100 mg PO TID PRN capsule PRN Reason: Cough Diltiazem CD (24hr) [Cardizem CD] 120 mg PO DAILY cap.er.24h Furosemide [Lasix] 40 mg PO DAILY tablet Discontinued Oxybutynin [Ditropan] 5 mg PO TID tablet predniSONE [PredniSONE] 10 mg PO DAILY #3 tablet Losartan [Cozaar] 25 mg PO DAILY #30 tablet Home Medications: Albuterol Neb [Proventil Neb] 2.5 mg IH Q4H PRN 08/07/16 [History] Albuterol Sulfate [Albuterol Inhaler] 2 puff IH Q4H PRN 08/07/16 [History] Budesonide/Formoterol 160/4.5 [Symbicort 160/4.5] 2 puff IH BIDR 08/07/16 [History] Sertraline [Zoloft] 100 mg PO DAILY 08/07/16 [History] Ondansetron HCl 4 mg PO QID PRN 06/25/18 [History] ALPRAZolam [Xanax 0.5 MG Tablet] 0.5 mg PO TID PRN 07/04/18 [History] Lactulose 30 ml PO BID PRN 07/05/18 [History] Apixaban [Eliquis] 5 mg PO BID tablet 07/29/18 [Rx] Benzonatate [Tessalon] 100 mg PO TID PRN capsule 07/29/18 [Rx] Diltiazem CD (24hr) [Cardizem CD] 120 mg PO DAILY cap.er.24h 07/29/18 [Rx] Furosemide [Lasix] 40 mg PO DAILY tablet 07/29/18 [Rx] GuaiFENesin Liq [Robitussin Liq] 200 mg PO Q6HR PRN udc 07/29/18 [Rx] Ascorbic Acid [Vitamin C] 500 mg PO DAILY@0630 #30 tablet 08/18/18 [Rx] Ciprofloxacin [Cipro] 500 mg PO BID #6 tablet 08/18/18 [Rx] Cyanocobalamin (B-12) [Vitamin B12] 1,000 mcg PO DAILY #30 tablet 08/18/18 [Rx] Doxycycline 100 mg PO BID #6 capsule 08/18/18 [Rx] Ferrous Sulfate 325 mg PO DAILY@0630 #30 tablet 08/18/18 [Rx] Lactobacillus [Culturelle] 1 each PO BID #6 cap.sprink 08/18/18 [Rx] Metoprolol XL (24 HR) Succ [Toprol XL] 25 mg PO DAILY #30 tab.er.24h 08/18/18 [Rx] Potassium Chloride 10 meq PO BIDWM #14 tab.er.prt 08/18/18 [Rx] Allergies/Adverse Reactions: Allergy/AdvReac Type Severity Reaction Status Date / Time morphine Allergy Vomiting Verified 07/04/18 09:30 Sulfa (Sulfonamide Allergy Hives Verified 07/04/18 09:30 Antibiotics) Date of admission: 07/29/18 22:17 Primary care physician: Yaa Rogers CNP Consults: 07/29/18 22:49 Consult to Occupational Therapy [CONS] Routine Comment: To evaluate,develop, and implement plan of care Reason for Consult: To evaluate,develop, and implement plan of care Does patient have active BEDREST order?: No Is patient medically & hemodynamically stable?: Yes Patient assessed for mobility or mobilized this visit?: Yes Consult to Physical Therapy [CONS] Routine Comment: To evaluate,develop, and implement plan of care Reason for Consult: To evaluate,develop, and implement plan of care Does patient have active BEDREST order?: No Is patient medically & hemodynamically stable?: Yes Patient assessed for mobility or mobilized this visit?: Yes Consult to Drama Teacher [CONS] Routine Reason for SW Consult: discharge planning - Constitutional Vitals: Temp Pulse Resp BP Pulse Ox 98.1 F 102 18 109/50 93 08/18/18 08:12 08/18/18 08:12 08/17/18 22:42 08/18/18 08:12 08/18/18 08:45 - Patient Status Disposition: Home Health Service - Discharge Instructions Follow Up With: Yaa Rogers, CARB[employer] PASTE MIXER OPERATOR [Primary Care Provider] - 1 week - Diet and Activity Activity: resume usual activities as tolerated, wear oxygen at all times, other (Wear BiPAP as directed) Diet: advance to your usual diet - VTE Documentation of Mechanical Device: Graduated compression elastic hosiery
--- NOTE | 2018-08-18 10:51 | Physician Discharge Referral ---
Home Health/Hosp Referral Info Transfer to: Home Health Attending Provider: Charles Provider in Charge Post Discharge: PCP (Rosaline Rogers CNP) - Diagnosis (1) Colovesical fistula Priority: Primary Status: Acute (2) Weakness Priority: Secondary Status: Acute (3) HTN (hypertension) Priority: Secondary Status: Chronic (4) COPD (chronic obstructive pulmonary disease) Priority: Secondary Status: Chronic (5) Atrial fibrillation Priority: Secondary Status: Chronic (6) Anxiety Priority: Secondary Status: Chronic (7) Anemia Priority: Secondary Status: Acute (8) Hypokalemia Priority: Secondary Status: Acute (9) Hypomagnesemia Priority: Secondary Status: Resolved (10) Edema Priority: Secondary Status: Acute (11) Rash Priority: Secondary Status: Resolved (12) Leukocytosis Priority: Secondary Status: Acute - Respiratory Orders Oxygen / L per min (2 L/m by nasal cannula 01/12) Smoking Cessation: Smoking cessation has been advised. For more information, call the [place] Tobacco Quit Line at 0-191-BEIE-NOW. - Diet/Nutrition Diet/Nutrition Orders: Regular - Activity Activity Orders: Walker - Services Needed Following services are medically necessary services: Nursing, Home Health Aide, Physical Therapy, Occupational Therapy - Transfer Medications Prescriptions: Ascorbic Acid [Vitamin C] 500 mg PO DAILY@0630 #30 tablet Ciprofloxacin [Cipro] 500 mg PO BID #6 tablet Cyanocobalamin (B-12) [Vitamin B12] 1,000 mcg PO DAILY #30 tablet Doxycycline 100 mg PO BID #6 capsule Ferrous Sulfate 325 mg PO DAILY@0630 #30 tablet Lactobacillus [Culturelle] 1 each PO BID #6 cap.sprink Metoprolol XL (24 HR) Succ [Toprol XL] 25 mg PO DAILY #30 tab.er.24h Potassium Chloride 10 meq PO BIDWM #14 tab.er.prt Home Medications: Albuterol Neb [Proventil Neb] 2.5 mg IH Q4H PRN 08/07/16 [History] Albuterol Sulfate [Albuterol Inhaler] 2 puff IH Q4H PRN 08/07/16 [History] Budesonide/Formoterol 160/4.5 [Symbicort 160/4.5] 2 puff IH BIDR 08/07/16 [History] Sertraline [Zoloft] 100 mg PO DAILY 03/30/17 [History] Ondansetron HCl 4 mg PO QID PRN 06/25/18 [History] ALPRAZolam [Xanax 0.5 MG Tablet] 0.5 mg PO TID PRN 07/04/18 [History] Lactulose 30 ml PO BID PRN 07/05/18 [History] Apixaban [Eliquis] 5 mg PO BID tablet 07/29/18 [Rx] Benzonatate [Tessalon] 100 mg PO TID PRN capsule 07/29/18 [Rx] Diltiazem CD (24hr) [Cardizem CD] 120 mg PO DAILY cap.er.24h 07/29/18 [Rx] Furosemide [Lasix] 40 mg PO DAILY tablet 07/29/18 [Rx] GuaiFENesin Liq [Robitussin Liq] 200 mg PO Q6HR PRN udc 07/29/18 [Rx] Ascorbic Acid [Vitamin C] 500 mg PO DAILY@0630 #30 tablet 08/18/18 [Rx] Ciprofloxacin [Cipro] 500 mg PO BID #6 tablet 08/18/18 [Rx] Cyanocobalamin (B-12) [Vitamin B12] 1,000 mcg PO DAILY #30 tablet 08/18/18 [Rx] Doxycycline 100 mg PO BID #6 capsule 08/18/18 [Rx] Ferrous Sulfate 325 mg PO DAILY@0630 #30 tablet 08/18/18 [Rx] Lactobacillus [Culturelle] 1 each PO BID #6 cap.sprink 08/18/18 [Rx] Metoprolol XL (24 HR) Succ [Toprol XL] 25 mg PO DAILY #30 tab.er.24h 08/18/18 [Rx] Potassium Chloride 10 meq PO BIDWM #14 tab.er.prt 08/18/18 [Rx] Allergies/Adverse Reactions: Allergy/AdvReac Type Severity Reaction Status Date / Time morphine Allergy Vomiting Verified 07/04/18 09:30 Sulfa (Sulfonamide Allergy Hives Verified 07/04/18 09:30 Antibiotics) Certification: Further, I certify that my clinical findings support that this patient is homebound (i.e. absences from home require considerable and taxing effort and are for medical reasons or latter-day services or infrequently or short duration when for other reasons) because: Homebound Reason: Leaving home requires considerable and taxing effort due to condition (COPD, weakness) Attestation: My signature below is to certify that this patient is under my care and that I, or nurse practitioner, or a physician's records assistant working with me, has a [id number] encounter with this patient.
== END 2018-08-18 16:21 | disposition home health service (06) | DRG 949 ==
LOC: INPPIK 22:17
PROVIDERS: ADMIT Internal Medicine; ATTEND Internal Medicine